=== PATIENT | female | born 1965 | race African-American/Black ===

== ENCOUNTER 2023-11-15 13:04 | Inpatient (IN) | payer BC, OTHER ==
[~2023-11-15] VITALS: Ht 165.1 cm; Wt 68.7 kg
[2023-11-15 14:31] VITALS: PULSE 74; RESP 22; O2SAT 98
[2023-11-15 14:45] LABS: Basophils # (auto) 0 10 ^3/uL (0-0.2); Basophils % (auto) 0.8 % (0.0-2.0); Eosinophils # (auto) 0.1 10 ^3/uL (0-0.8); Hemoglobin 13.5 g/dL (12.2-16.2); Lymphocytes # (auto) 2.2 10 ^3/uL (0.4-5.4); Lymphocytes % (auto) 40.4 % (10.0-50.0); Mean Corpuscular Hemoglobin 31.4 pg (28.0-32.0); Mean Corpuscular Hgb Conc. 34.5 g/dL (32.0-36.0); Mean Corpuscular Volume 90.8 fL (80.0-100.0); Monocytes # (auto) 0.5 10 ^3/uL (0-1.3); Monocytes % (auto) 9.4 % (0.0-12.0); Neutrophils # (auto) 2.5 10 ^3/uL (1.6-8.6); Neutrophils % (auto) 47.4 % (37.0-80.0); Nucleated Red Blood Cells % 0.2 %; Platelet Count (auto) 256 10^3/uL (140-450); White Blood Cell 5.3 10^3/uL (4.4-10.8)
[2023-11-15 14:47] LABS: Chloride 113 mmol/L (98-107); Potassium 3.3 mmol/L (3.5-5.1); Sodium 144 mmol/L (136-145)
[2023-11-15 14:48] LABS: Anion Gap 7 (5-15); Calcium 9.9 mg/dL (8.7-10.4); Carbon Dioxide 24 mmol/L (20-31)
[2023-11-15 14:53] LABS: BUN/Creatinine Ratio 13.2 (10.0-20.0); Blood Urea Nitrogen 9 mg/dL (9-23); Glucose 107 mg/dL (74-106)
[2023-11-15 19:22] LABS: Urine Bacteria FEW /hpf (None Seen); Urine Blood Negative /uL (Negative); Urine Clarity Clear (Clear); Urine Color Light-Yellow (Yellow); Urine Protein, UAD Negative (Negative); Urine Specific Gravity 1.012 (1.001-1.035); Urine Urobilinogen Normal (Negative); Urine WBC 3 /hpf (0 - 5); Urine pH 6.5 (5.0-9.0)
[2023-11-15] MEDS ORDERED: MORPHINE SULFATE INJ 2 MG/ml SYRG IV PRN (20:30)
[2023-11-15] MEDS ORDERED: DOCUSATE SOD 100 MG CAP PO PRN (20:30)
[2023-11-15] MEDS ORDERED: NITROGLYCERIN 0.4 MG SL TAB SL PRN (20:30)
[2023-11-15] MEDS ORDERED: ONDANSETRON HCL 4 MG/2 ML VIAL IV PRN (20:30)
[2023-11-15] MEDS: HYDROcodone-ACET 5/325MG TAB PO ONE (20:36)
[2023-11-15] MEDS: POTASSIUM CHL 20 Meq TABLET PO ONE (20:44)
[2023-11-15 20:59] VITALS: PULSE 65; RESP 13; O2SAT 96
[2023-11-15 22:16] VITALS: BP 141/60; PULSE 60; RESP 18; TEMP 97.5; O2SAT 95
[2023-11-15] MEDS: MECLIZINE HCL 25 MG TAB PO SCH (23:49)
[2023-11-16] VITALS (10 sets, daily range): BP systolic 119–145; BP diastolic 46–71; PULSE 57–76; RESP 16–20; TEMP 97.4–98; O2SAT 94–100
[2023-11-16] MEDS: HYDROcodone-ACET 5/325MG TAB PO PRN (03:45)
[2023-11-16 07:41] LABS: Carbon Dioxide 21 mmol/L (20-31); Chloride 111 mmol/L (98-107)
[2023-11-16 07:42] LABS: Anion Gap 8 (5-15); Sodium 140 mmol/L (136-145)
[2023-11-16 07:43] LABS: Calcium 9.9 mg/dL (8.7-10.4)
[2023-11-16 07:48] LABS: BUN/Creatinine Ratio 10.8 (10.0-20.0); Blood Urea Nitrogen 7 mg/dL (9-23); Glucose 81 mg/dL (74-106)
[2023-11-16 07:55] LABS: Basophils # (auto) 0 10 ^3/uL (0-0.2); Basophils % (auto) 0.5 % (0.0-2.0); Eosinophils # (auto) 0.2 10 ^3/uL (0-0.8); Eosinophils % (auto) 4.2 % (0.0-7.0); Hemoglobin 13.8 g/dL (12.2-16.2); Lymphocytes # (auto) 2.2 10 ^3/uL (0.4-5.4); Lymphocytes % (auto) 38.7 % (10.0-50.0); Mean Corpuscular Hemoglobin 31.2 pg (28.0-32.0); Mean Corpuscular Hgb Conc. 32.9 g/dL (32.0-36.0); Mean Corpuscular Volume 94.7 fL (80.0-100.0); Monocytes # (auto) 0.5 10 ^3/uL (0-1.3); Monocytes % (auto) 9.2 % (0.0-12.0); Neutrophils # (auto) 2.7 10 ^3/uL (1.6-8.6); Neutrophils % (auto) 47.4 % (37.0-80.0); Nucleated Red Blood Cells % 0.1 %; Red Blood Cells 4.43 10^6/uL (4.0-5.20); Red Cell Distribution Width 14.4 % (11.8-14.3); White Blood Cell 5.7 10^3/uL (4.4-10.8)
[2023-11-16 07:56] LABS: Platelet Count (auto) 248 10^3/uL (140-450)
[2023-11-16] MEDS ORDERED: DIVA-91 PO (17:17)
[2023-11-16] MEDS ORDERED: BISO1TAB18 PO (17:22)
[2023-11-16] MEDS ORDERED: MEMA14CA OR (17:23)
[2023-11-17] VITALS (7 sets, daily range): BP systolic 117–150; BP diastolic 56–77; PULSE 58–79; RESP 16–18; TEMP 36.7; O2SAT 97–100
[2023-11-17 07:15] LABS: Chloride 108 mmol/L (98-107); Potassium 3.9 mmol/L (3.5-5.1); Sodium 141 mmol/L (136-145)
[2023-11-17 07:16] LABS: Anion Gap 7 (5-15); Calcium 10.3 mg/dL (8.7-10.4); Carbon Dioxide 26 mmol/L (20-31)
[2023-11-17 07:21] LABS: BUN/Creatinine Ratio 13.6 (10.0-20.0); Blood Urea Nitrogen 9 mg/dL (9-23); Glucose 86 mg/dL (74-106)
[2023-11-17 07:30] LABS: Basophils # (auto) 0 10 ^3/uL (0-0.2); Basophils % (auto) 0.8 % (0.0-2.0); Eosinophils # (auto) 0.2 10 ^3/uL (0-0.8); Hematocrit 44.4 % (36.0-46.0); Hemoglobin 15.2 g/dL (12.2-16.2); Lymphocytes # (auto) 1.7 10 ^3/uL (0.4-5.4); Mean Corpuscular Hemoglobin 31.1 pg (28.0-32.0); Mean Corpuscular Hgb Conc. 34.3 g/dL (32.0-36.0); Mean Corpuscular Volume 90.6 fL (80.0-100.0); Monocytes # (auto) 0.5 10 ^3/uL (0-1.3); Monocytes % (auto) 9.9 % (0.0-12.0); Neutrophils # (auto) 2.6 10 ^3/uL (1.6-8.6); Neutrophils % (auto) 51.3 % (37.0-80.0); Nucleated Red Blood Cells % 0.1 %; Platelet Count (auto) 235 10^3/uL (140-450); Red Cell Distribution Width 14.1 % (11.8-14.3); White Blood Cell 5.1 10^3/uL (4.4-10.8)
[2023-11-17] MEDS ORDERED: MECL12.586 PO (12:49)
[2023-11-17] MEDS: ACETAMINOPHEN 325 MG TAB PO PRN (13:55)
== END 2023-11-17 17:21 | disposition home health service (06) | DRG 312 ==
LOC: ER 13:04 → EDBD 13:04 → TELE 20:32 → TELE-WESTW 22:16
PROVIDERS: ADMIT Nurse Practitioner Family; ATTEND Nurse Practitioner Family
DX: R55 Syncope and collapse (principal); I69.351 Hemiplegia and hemiparesis following cerebral infarction affecting right dominant side; R42 Dizziness and giddiness; R07.9 Chest pain, unspecified; R53.1 Weakness; F17.210 Nicotine dependence, cigarettes, uncomplicated
CPT/HCPCS: 36415; 70450; 71045; 73020; 80048; 81001; 84484; 85025; 93005; 93306; 97110; 97116; 97163; 97530; 99291; G0378

== ENCOUNTER 2024-01-07 17:52 | Emergency (ER) | payer BC ==
[~2024-01-07] VITALS: Ht 167.6 cm; Wt 67.0 kg
[~2024-01-07 17:52] MED LIST: BISO1TAB18 PO; DIVA-91 PO; MECL12.586 PO; MEMA14CA OR
--- NOTE | 2024-01-07 18:05 | ED.PDOC ---
HPI (NEURO) HPI Comments 58y F who presents to the ED via EMS for chief complaint of seizure. Per EMS, pt had seizure earlier this AM witnessed by family which they states lasted approx 1 minute. Pt family states pt was sitting down when seizure occurred and pt after seizure has been having dizziness and family called EMS after pt dizziness did not go away. pt family states pt had no oral trauma or incontinence noted after seizure. EMS arrived on scene and after checking vitals, pt was stable and brought to the ED. Pt in the ED, states she was recently diagnosed with seizure activity at [facility] and started on Keppra and Depakote which pt has been taking and took earlier this AM. Pt now in the ED, otherwise is ax0x 0x4 and able to answer all questions. Pt otherwise denies any other symptoms at this time. Chief Complaint: Seizure Time Seen by MD: 18:02 Reviewed Notes: Medications, Allergies Information Source: Patient, Emergency Med Personnel Mode of Arrival: EMS Brought in by: EMS Severity: Moderate Dizziness/Weakness Severity: Unable to do activities Headache Severity: None Timing: Minutes, Hours Duration: Since onset Prehospital treatment: None Headache Quality: Throbbing Headache Location: Generalized Onset: At rest Circumstances: Spontaneous Symptoms: Weakness Before: Normal During: LOC After: Headache History of: Seizure Disorder Modifying factors: Nothing Associated Signs and Symptoms: None Past Medical History PAST MEDICAL HISTORY: CVA, Seizures Past Medical History (Other): brain aneurysm Surgical History: Denies all surgeries Surgical History (Other): surgery for brain aneurysm WHITE SPOOLER History: No Pertinent WHITE SPOOLER History Family History Family History: Unknown Social History Smoker: Non-Smoker Alcohol: Denies ETOH Use Drugs: Denies Drug Use Lives In: Home Constitutional: denies: chills, diaphoresis, fatigue, fever, malaise, sweats, weakness, others EENTM: denies: blurred vision, double vision, ear bleeding, ear discharge, ear drainage, ear pain, ear ringing, eye pain, eye redness, hearing loss, mouth pain, mouth swelling, nasal discharge, nose bleeding, nose congestion, nose pain, photophobia, tearing, throat pain, throat swelling, voice changes, others Respiratory: denies: cough, hemoptysis, orthopnea, SOB at rest, shortness of breath, SOB with excertion, stridor, wheezing, others Cardiovascular: denies: chest pain, dizzy spells, diaphoresis, Dyspnea on exertion, edema, irregular heart beat, left arm pain, lightheadedness, palpitations, PND, syncope, others Gastrointestinal: denies: abdomen distended, abdominal pain, blood streaked bowels, constipated, diarrhea, dysphagia, difficulty swallowing, hematemesis, melena, nausea, poor appetite, poor fluid intake, rectal bleeding, rectal pain, vomiting, others Genitourinary: denies: abnormal vagina bleeding, burning, dyspareunia, dysuria, flank pain, frequency, hematuria, incontinence, pain, , vagina discharge, urgency, others Neurological: reports: headache, seizure; denies: dizziness, fainting, left sided numbness, left sided weakness, numbness, paresthesia, pre-existing deficit, right sided numbness, right sided weakness, speech problems, tingling, tremors, weakness, others Musculoskeletal: denies: back pain, gout, joint pain, joint swelling, muscle pain, muscle stiffness, neck pain, others Integumetry: denies: bruises, change in color, change in hair/nails, dryness, laceration, lesions, lumps, rash, wounds, others Allergic/Immunocompromised: denies: Difficulty Healing, Frequent Infections, Hives, Itching, others Hematologic/Lymphatic: denies: anemia, blood clots, easy bleeding, easy bruising, swollen glands, others Endocrine: denies: excessive hunger, excessive sweating, excessive thirst, excessive urination, flushing, intolerance to cold, intolerance to heat, unexplained weight gain, unexplained weight loss, others Psychiatric: denies: anxiety, bipolar disorder, depression, hopeless, panic disorder, schizophrenia, sleepless, suicidal, others All Other Systems: Reviewed and Negative Physical Exam General Appearance: Mild Distress HEENT: Normal ENT Inspection, Pharynx Normal, TMs Normal Neck: Full Range of Motion, Non-Tender, Normal, Normal Inspection Respiratory: Chest Non-Tender, Lungs Clear, No Accessory Muscle Use, No Respiratory Distress, Normal Breath Sounds Cardiovascular: No Edema, No JVD, No Murmur, No Gallop, Normal Peripheral Pulses, Regular Rate/Rhythm Breast Exam: Deferred Gastrointestinal: No Organomegaly, Non Tender, No Pulsatile Mass, Normal Bowel Sounds, Soft Genitalia: Deferred Pelvic: Deferred Rectal: Deferred Extremities: No calf tenderness, Normal capillary refill, Normal inspection, Normal range of motion, Non-tender, No pedal edema Musculoskeletal : Apperance: Normal Neurologic: Alert, rotary helper II-XII nml as Tested, No Motor Deficits, Normal Affect, Normal Mood, No Sensory Deficits Cerebellar Function: Normal Reflexes: Normal Skin: Dry, Normal Color, Warm Lymphatic: No Adenopathy Was a procedure done? Was a procedure done?: No Differential Diagnosis (SZ) Seizure: Anticonvulsant Withdrawl, Closed Head Injury, CVA/TIA, Hypocalcemia, Hypoglycemia, Hyponatremia, Hypoxemia, Idiopathic, Encephalopathy, Epilepsy- Break Through, Epilepsy-Status, Other (break-through seizure) Headache: Migraine, Closed Head Injury, Sinusitis, Trigeminal Neuralgia X-Ray, Labs, Meds, VS Vital Signs Date Time Temp Pulse Resp B/P (MAP) Pulse Ox O2 Delivery O2 Flow Rate FiO2 01/07/24 18:45 67 01/07/24 18:45 61 17 129/38 (68) 96 01/07/24 18:45 61 17 96 Room Air* 0 21 01/07/24 17:55 98.4 78 16 137/88 (104) 98 01/07/24 17:53 78 Lab Test 01/07/24 18:36 Range/Units White Blood Count 5.3 4.4-10.8 10^3/uL Red Blood Count 4.85 4.0-5.20 10^6/uL Hemoglobin 15.2 12.2-16.2 g/dL Hematocrit 44.5 36.0-46.0 % Mean Corpuscular Volume 91.8 80.0-100.0 fL Mean Corpuscular Hemoglobin 31.4 28.0-32.0 pg Mean Corpuscular Hemoglobin Concent 34.2 32.0-36.0 g/dL Red Cell Distribution Width 13.2 11.8-14.3 % Platelet Count 285 140-450 10^3/uL Mean Platelet Volume 8.3 6.9-10.8 fL Neutrophils (%) (Auto) 45.5 37.0-80.0 % Lymphocytes (%) (Auto) 39.5 10.0-50.0 % Monocytes (%) (Auto) 11.8 0.0-12.0 % Eosinophils (%) (Auto) 2.3 0.0-7.0 % Basophils (%) (Auto) 0.9 0.0-2.0 % Neutrophils # (Auto) 2.4 1.6-8.6 10 ^3/uL Lymphocytes # (Auto) 2.1 0.4-5.4 10 ^3/uL Monocytes # (Auto) 0.6 0-1.3 10 ^3/uL Eosinophils # (Auto) 0.1 0-0.8 10 ^3/uL Basophils # (Auto) 0 0-0.2 10 ^3/uL Nucleated Red Blood Cells 0.1 % Sodium Level 142 136-145 mmol/L Potassium Level 3.5 3.5-5.1 mmol/L Chloride Level 108 H 98-107 mmol/L Carbon Dioxide Level 24 20-31 mmol/L Anion Gap 10 5-15 Blood Urea Nitrogen 13 9-23 mg/dL Creatinine 0.82 0.550-1.02 mg/dL Glomerular Filtration Rate Calc 82 >90 mL/min BUN/Creatinine Ratio 15.9 10.0-20.0 Serum Glucose 89 74-106 mg/dL Calcium Level 10.5 H 8.7-10.4 mg/dL Valproic Acid Level Pending Current Medications Medications (Trade) Dose Ordered Sig/Natividad Route Start Time Stop Time Status Last Admin Levetiracetam 100 ml @ 400 mls/hr ONCE ONCE IV 01/07/24 18:00 01/07/24 18:14 DC 01/07/24 19:13 IV Hep-Lock was established The patient was given Keppra 1 g IV piggyback The patient was also being given Depakote 500 mg IV piggyback The patient's CBC and chemistry panel are within normal limits The patient was being discharged The patient will follow up with the primary care doctor The patient will return to the emergency department's the condition worsens. Time of 1ST Reevaluation: 18:35 Reevaluation 1ST: Unchanged Time of 2ND Reevaluation: 19:27 Reevaluation 2ND: Improved Patient Education/Counseling: Diagnosis, Treatment, Prognosis, Need For Follow Up Family Education/Counseling: No Family Present Departure 1 Departure Time of Disposition: 19:27 Impression: Primary Impression: Breakthrough seizure Disposition: 01 HOME / SELF CARE / HOMELESS Condition: Fair Discharged With: Self Critical Care Note Critical Care Time?: No Stability Stability form required: No Heart Score Heart Score: Heart Score Response (Comments) Value History N/A 0 EKG N/A 0 Age N/A 0 Risk Factors N/A 0 Troponin N/A 0 Total 0 I personally scribed for STEFANY THAPA MD ([email or web address]) on 01/07/24 at 18:05. Electronically submitted by Terrance Heath ([email or web address]). STEFANY THAPA MD Jan 07, 2024 18:05
--- NOTE | 2024-01-07 18:08 | ECG ---
[facility] Test Date: 2024-01-07 Test Time: 17:53:57 Pat Name: SHELLEY RANDOLPH Department: ER Room: Gender: F Cold Type Artist: LILIAM : 1965 Requested By: STEFANY THAPA Order Number: [id number] Reading MD: Eric Ureña Measurements Intervals [place] Rate: 78 P: 79 [place]: 135 QRS: 46 QRSD: 78 T: 64 QT: 390 QTc: 445 Interpretive Statements Sinus rhythm Electronically Signed On 01-13-2024 13:35:41 PST by Eric Ureña Please click the below link to view image of tracing.
[2024-01-07 18:45] VITALS: PULSE 61; RESP 17; O2SAT 96
[2024-01-07 18:53] LABS: Basophils # (auto) 0 10 ^3/uL (0-0.2); Basophils % (auto) 0.9 % (0.0-2.0); Eosinophils # (auto) 0.1 10 ^3/uL (0-0.8); Eosinophils % (auto) 2.3 % (0.0-7.0); Hematocrit 44.5 % (36.0-46.0); Hemoglobin 15.2 g/dL (12.2-16.2); Lymphocytes # (auto) 2.1 10 ^3/uL (0.4-5.4); Lymphocytes % (auto) 39.5 % (10.0-50.0); Mean Corpuscular Hemoglobin 31.4 pg (28.0-32.0); Mean Corpuscular Hgb Conc. 34.2 g/dL (32.0-36.0); Mean Corpuscular Volume 91.8 fL (80.0-100.0); Monocytes # (auto) 0.6 10 ^3/uL (0-1.3); Monocytes % (auto) 11.8 % (0.0-12.0); Neutrophils # (auto) 2.4 10 ^3/uL (1.6-8.6); Neutrophils % (auto) 45.5 % (37.0-80.0); Nucleated Red Blood Cells % 0.1 %; Platelet Count (auto) 285 10^3/uL (140-450); Red Blood Cells 4.85 10^6/uL (4.0-5.20); Red Cell Distribution Width 13.2 % (11.8-14.3); White Blood Cell 5.3 10^3/uL (4.4-10.8)
[2024-01-07 19:12] LABS: Sodium 142 mmol/L (136-145)
[2024-01-07 19:13] LABS: Anion Gap 10 (5-15); Carbon Dioxide 24 mmol/L (20-31)
[2024-01-07] MEDS: levETIRAcetam 1000 mg/100ml 100 ML IV ONE (19:13)
[2024-01-07 19:14] LABS: Calcium 10.5 mg/dL (8.7-10.4); Chloride 108 mmol/L (98-107); Potassium 3.5 mmol/L (3.5-5.1)
[2024-01-07 19:18] LABS: BUN/Creatinine Ratio 15.9 (10.0-20.0); Blood Urea Nitrogen 13 mg/dL (9-23); Glucose 89 mg/dL (74-106)
[2024-01-07 20:00] VITALS: PULSE 59; RESP 15; TEMP 98; O2SAT 97
[2024-01-07] MEDS: VALPROATE INJ 500 MG in SODIUM CHL 0.9% 100 ML IV ONE (20:34)
[2024-01-07] MEDS: VALPROATE SODIUM 100 MG/ML 5ML VIAL IV ONE (20:44)
[2024-01-07 23:00] VITALS: BP 113/41; PULSE 61; RESP 14; O2SAT 98
== END 2024-01-07 23:47 | disposition home or self-care (01) ==
LOC: EDBD 17:52 → ER 17:52 → EDUNIT# 17:52 → ER 23:47
DX: G40.909 Epilepsy, unspecified, not intractable, without status epilepticus (principal); Z86.73 Personal history of transient ischemic attack (TIA), and cerebral infarction without residual deficits; Z98.890 Other specified postprocedural states
CPT/HCPCS: 36415; 80048; 80164; 85025; 93005; 96365; 96366; 96367; 99285; J1953

== ENCOUNTER 2024-04-25 14:46 | Emergency (ER) | payer BC ==
[~2024-04-25] VITALS: Ht 167.6 cm; Wt 85.0 kg
--- NOTE | 2024-04-25 15:01 | ED.PDOC ---
History of Present Illness HPI Comments 58-year-old female who comes in with chief complaint of three seizures today lasting 1-2 minutes each. According to the bench hand machine, the patient was at home and then had three tonic-clonic seizures. The patient was currently on Keppra and took her 1500 mg this morning. The patient then developed some nausea but no vomiting. The patient's Accu-Chek was 95 EN route. When the paramedics arrived, the patient was somewhat postictal but upon arrival she is able to answer all questions appropriately. She has had seizures after her brain surgery and has been doing fairly well. Time Seen by MD: 14:50 Reviewed Notes: Nurses Notes, Medications, Allergies (Allergies to sulfa) Allergies: Coded Allergies: Sulfa Antibiotics (Verified Allergy, Unknown, 11/15/23) Home Meds Active Scripts Meclizine Hcl (Meclizine Hcl) 12.5 Mg Tab, 1 TAB PO TID PRN, #14 TAB As needed for dizziness/vertigo symptoms Prov:HALLE BANEGAS MD 11/17/23 Reported Medications Memantine Hydrochloride (NAMENDA XR) 14 Mg Cap, 14 MG OR DAILY, CAP 11/16/23 Bisoprolol & Hydrochlorothiazi (Bisoprolol Fumarate/Norton 10-6.25 mg) 1 Tab Tab, 1 TAB PO HS, TAB 11/16/23 Divalproex Sodium (Depakote) 500 Mg Tab, 500 MG PO HS, TAB 11/16/23 Information Source: Patient Mode of Arrival: EMS Severity: Moderate Duration: Intermittent Prehospital treatment: Accucheck (95), Utility Worker Driver, IVF Associated signs and symptoms Associated headache but no nausea or vomiting Past Medical History PAST MEDICAL HISTORY: CVA, Seizures Surgical History: Hysterectomy Surgical History (Other): Craniotomy NETWORK TECHNICIAN History: No Pertinent NETWORK TECHNICIAN History Family History Family History: Unknown Social History Smoker: Cigarettes Alcohol: Denies ETOH Use Drugs: Denies Drug Use Lives In: Home Constitutional: denies: chills, diaphoresis, fatigue, fever, malaise, sweats, weakness, others EENTM: denies: blurred vision, double vision, ear bleeding, ear discharge, ear drainage, ear pain, ear ringing, eye pain, eye redness, hearing loss, mouth pain, mouth swelling, nasal discharge, nose bleeding, nose congestion, nose pain, photophobia, tearing, throat pain, throat swelling, voice changes, others Respiratory: denies: cough, hemoptysis, orthopnea, SOB at rest, shortness of breath, SOB with excertion, stridor, wheezing, others Cardiovascular: denies: chest pain, dizzy spells, diaphoresis, Dyspnea on exertion, edema, irregular heart beat, left arm pain, lightheadedness, palpitations, PND, syncope, others Gastrointestinal: reports: nausea; denies: abdomen distended, abdominal pain, blood streaked bowels, constipated, diarrhea, dysphagia, difficulty swallowing, hematemesis, melena, poor appetite, poor fluid intake, rectal bleeding, rectal pain, vomiting, others Genitourinary: denies: abnormal vagina bleeding, burning, dyspareunia, dysuria, flank pain, frequency, hematuria, incontinence, pain, , vagina discharge, urgency, others Neurological: reports: headache, seizure; denies: dizziness, fainting, left sided numbness, left sided weakness, numbness, paresthesia, pre-existing deficit, right sided numbness, right sided weakness, speech problems, tingling, tremors, weakness, others Musculoskeletal: denies: back pain, gout, joint pain, joint swelling, muscle pain, muscle stiffness, neck pain, others Integumetry: denies: bruises, change in color, change in hair/nails, dryness, laceration, lesions, lumps, rash, wounds, others Allergic/Immunocompromised: denies: Difficulty Healing, Frequent Infections, Hives, Itching, others Hematologic/Lymphatic: denies: anemia, blood clots, easy bleeding, easy bruising, swollen glands, others Endocrine: denies: excessive hunger, excessive sweating, excessive thirst, excessive urination, flushing, intolerance to cold, intolerance to heat, unexplained weight gain, unexplained weight loss, others Psychiatric: denies: anxiety, bipolar disorder, depression, hopeless, panic disorder, schizophrenia, sleepless, suicidal, others Physical Exam General Appearance: Mild Distress HEENT: Normal ENT Inspection, Pharynx Normal, TMs Normal Neck: Full Range of Motion, Non-Tender, Normal, Normal Inspection Respiratory: Chest Non-Tender, Lungs Clear, No Accessory Muscle Use, No Respiratory Distress, Normal Breath Sounds Cardiovascular: No Edema, No JVD, No Murmur, No Gallop, Normal Peripheral Pulses, Regular Rate/Rhythm Breast Exam: Deferred Gastrointestinal: No Organomegaly, Non Tender, No Pulsatile Mass, Normal Bowel Sounds, Soft Genitalia: Deferred Pelvic: Deferred Rectal: Deferred Extremities: No calf tenderness, Normal capillary refill, Normal inspection, Normal range of motion, Non-tender, No pedal edema Musculoskeletal : Apperance: Normal Neurologic: Alert, touch up painter II-XII nml as Tested, No Motor Deficits, Normal Affect, Normal Mood, No Sensory Deficits Cerebellar Function: Normal Reflexes: Normal Skin: Dry, Normal Color, Warm Lymphatic: No Adenopathy Was a procedure done? Was a procedure done?: No Differential Dx Considerations may include: Seizure, status epilepticus, syncope X-Ray, Labs, Meds, VS Vital Signs Date Time Temp Pulse Resp B/P (MAP) Pulse Ox O2 Delivery O2 Flow Rate FiO2 04/25/24 15:35 102 18 97 Room Air* 0 21 04/25/24 15:21 98.4 102 18 116/78 (91) 97 98.4 04/25/24 15:01 98.4 102 18 116/78 (91) 97 98.4 Lab Test 04/25/24 15:31 Range/Units White Blood Count 4.8 4.4-10.8 10^3/uL Red Blood Count 4.40 4.0-5.20 10^6/uL Hemoglobin 13.4 12.2-16.2 g/dL Hematocrit 39.9 36.0-46.0 % Mean Corpuscular Volume 90.6 80.0-100.0 fL Mean Corpuscular Hemoglobin 30.4 28.0-32.0 pg Mean Corpuscular Hemoglobin Concent 33.6 32.0-36.0 g/dL Red Cell Distribution Width 12.9 11.8-14.3 % Platelet Count 282 140-450 10^3/uL Mean Platelet Volume 8.5 6.9-10.8 fL Neutrophils (%) (Auto) 47.1 37.0-80.0 % Lymphocytes (%) (Auto) 38.1 10.0-50.0 % Monocytes (%) (Auto) 10.7 0.0-12.0 % Eosinophils (%) (Auto) 3.0 0.0-7.0 % Basophils (%) (Auto) 1.1 0.0-2.0 % Neutrophils # (Auto) 2.3 1.6-8.6 10 ^3/uL Lymphocytes # (Auto) 1.8 0.4-5.4 10 ^3/uL Monocytes # (Auto) 0.5 0-1.3 10 ^3/uL Eosinophils # (Auto) 0.1 0-0.8 10 ^3/uL Basophils # (Auto) 0.1 0-0.2 10 ^3/uL Nucleated Red Blood Cells 0.1 % Sodium Level 144 136-145 mmol/L Potassium Level 3.3 L 3.5-5.1 mmol/L Chloride Level 112 H 98-107 mmol/L Carbon Dioxide Level 25 20-31 mmol/L Anion Gap 7 5-15 Blood Urea Nitrogen 8 L 9-23 mg/dL Creatinine 0.86 0.550-1.02 mg/dL Glomerular Filtration Rate Calc 78 >90 mL/min BUN/Creatinine Ratio 9.3 L 10.0-20.0 Serum Glucose 72 L 74-106 mg/dL Calcium Level 10.4 8.7-10.4 mg/dL Current Medications Medications (Trade) Dose Ordered Sig/Natividad Route Start Time Stop Time Status Last Admin Levetiracetam 100 ml @ 400 mls/hr ONCE ONCE IV 04/25/24 15:00 04/25/24 15:14 DC 04/25/24 15:30 The patient's CBC and chemistry panel shows some mild hypokalemia at 3.3 The patient was given Keppra 1 g IV piggyback At this time, the patient is at baseline The patient will be discharged with a diagnosis of breakthrough seizures Time of 1ST Reevaluation: 15:01 Reevaluation 1ST: Unchanged Patient Education/Counseling: Diagnosis, Treatment, Prognosis, Need For Follow Up Family Education/Counseling: No Family Present Departure 1 Departure Time of Disposition: 16:31 Impression: Primary Impression: Breakthrough seizure Disposition: 01 HOME / SELF CARE / HOMELESS Condition: Fair Discharged With: Self Critical Care Note Critical Care Time?: No Stability Stability form required: No Heart Score Heart Score: Heart Score Response (Comments) Value History N/A 0 EKG N/A 0 Age N/A 0 Risk Factors N/A 0 Troponin N/A 0 Total 0 STEFANY THAPA MD Apr 25, 2024 15:01
[2024-04-25 15:21] VITALS: TEMP 98.4
[2024-04-25] MEDS: levETIRAcetam 1000 mg/100ml 100 ML IV ONE (15:30)
[2024-04-25 15:35] VITALS: PULSE 102; RESP 18; O2SAT 97
[2024-04-25 15:59] LABS: Basophils # (auto) 0.1 10 ^3/uL (0-0.2); Basophils % (auto) 1.1 % (0.0-2.0); Eosinophils # (auto) 0.1 10 ^3/uL (0-0.8); Hematocrit 39.9 % (36.0-46.0); Hemoglobin 13.4 g/dL (12.2-16.2); Lymphocytes # (auto) 1.8 10 ^3/uL (0.4-5.4); Lymphocytes % (auto) 38.1 % (10.0-50.0); Mean Corpuscular Hemoglobin 30.4 pg (28.0-32.0); Mean Corpuscular Hgb Conc. 33.6 g/dL (32.0-36.0); Mean Corpuscular Volume 90.6 fL (80.0-100.0); Monocytes # (auto) 0.5 10 ^3/uL (0-1.3); Monocytes % (auto) 10.7 % (0.0-12.0); Neutrophils # (auto) 2.3 10 ^3/uL (1.6-8.6); Neutrophils % (auto) 47.1 % (37.0-80.0); Nucleated Red Blood Cells % 0.1 %; Platelet Count (auto) 282 10^3/uL (140-450); Red Cell Distribution Width 12.9 % (11.8-14.3); White Blood Cell 4.8 10^3/uL (4.4-10.8)
[2024-04-25 16:08] LABS: Sodium 144 mmol/L (136-145)
[2024-04-25 16:09] LABS: Anion Gap 7 (5-15); Carbon Dioxide 25 mmol/L (20-31); Chloride 112 mmol/L (98-107); Potassium 3.3 mmol/L (3.5-5.1)
[2024-04-25 16:10] LABS: Calcium 10.4 mg/dL (8.7-10.4)
[2024-04-25 16:14] LABS: BUN/Creatinine Ratio 9.3 (10.0-20.0)
[2024-04-25 16:15] LABS: Blood Urea Nitrogen 8 mg/dL (9-23); Glucose 72 mg/dL (74-106)
[2024-04-25 17:31] VITALS: BP 123/58; PULSE 60; RESP 16; O2SAT 98
[2024-04-25] MEDS: ONDANSETRON HCL 4 MG/2 ML VIAL IV ONE (17:31)
[2024-04-25] MEDS: MORPHINE SULFATE INJ 2 MG/ml SYRG IV ONE (17:32)
== END 2024-04-25 23:00 | disposition home or self-care (01) ==
LOC: ER 14:46 → EDUNIT# 14:46 → EDBD 14:46 → ER 23:00
DX: R56.9 Unspecified convulsions (principal); F17.210 Nicotine dependence, cigarettes, uncomplicated; Z79.899 Other long term (current) drug therapy; Z86.73 Personal history of transient ischemic attack (TIA), and cerebral infarction without residual deficits; Z88.2 Allergy status to sulfonamides; Z90.710 Acquired absence of both cervix and uterus; Z98.890 Other specified postprocedural states
CPT/HCPCS: 36415; 80048; 85025; 96365; 99284; J1953

== ENCOUNTER 2024-08-16 11:10 | Emergency (ER) | payer BC, OTHER ==
[~2024-08-16] VITALS: Ht 167.6 cm; Wt 56.8 kg
--- NOTE | 2024-08-16 11:24 | ECG ---
[facility] Test Date: 2024-08-16 Test Time: 11:12:49 Pat Name: SHELLEY RANDOLPH Department: ED Room: Gender: F Insurance Manager: DEVAUGHN : 1965 Requested By: STEFANY THAPA Order Number: [id number] Reading MD: Eric Ureña Measurements Intervals [place] Rate: 69 P: 79 [place]: 136 QRS: 38 QRSD: 83 T: 57 QT: 429 QTc: 460 Interpretive Statements Sinus rhythm Electronically Signed On 08-18-2024 19:02:04 PDT by Eric Ureña Please click the below link to view image of tracing.
[2024-08-16] MEDS ORDERED: levETIRAcetam 1000 mg/100ml 200 ML IV ONE (11:30)
[2024-08-16] MEDS: levETIRAcetam 1000 mg/100ml 100 ML IV ONE ×2 (11:54)
--- NOTE | 2024-08-16 12:01 | ED.PDOC ---
HPI (NEURO) HPI Comments 59 y/o F, BIBA, accompanied by critical care educator presents to the ED for CC of s/p seizure. EMS reports, patient is coming from home where she had x2 witnessed seizures by her resident care manager rn. supervising editor trailer, reports patient had her scheduled Keppra as prescribed. At this time patient is A&Ox0 however, is following commands; no other symptoms or modifiers are obtainable at this time. Chief Complaint: Seizure Time Seen by MD: 11:30 Primary Care Provider: UNKNOWN Reviewed Notes: Nurses Notes, Assistant Store Manager Trainee Notes, Medications, Allergies Information Source: Emergency Med Personnel Mode of Arrival: EMS Severity: Moderate Headache Severity: None Timing: Minutes Duration: Since onset Prehospital treatment: None Seizure Location: Generalized Onset: At rest Circumstances: Spontaneous Before: Normal During: Awake After: Normal Mentation History of: Seizure Disorder Modifying factors: Nothing Associated Signs and Symptoms: None Past Medical History PAST MEDICAL HISTORY: CVA, Seizures Surgical History: Hysterectomy KILN FIRER HELPER History: No Pertinent KILN FIRER HELPER History Family History Family History: Unknown Social History Smoker: Cigarettes Alcohol: Denies ETOH Use Drugs: Denies Drug Use Lives In: Home Constitutional: denies: chills, diaphoresis, fatigue, fever, malaise, sweats, weakness, others EENTM: denies: blurred vision, double vision, ear bleeding, ear discharge, ear drainage, ear pain, ear ringing, eye pain, eye redness, hearing loss, mouth pain, mouth swelling, nasal discharge, nose bleeding, nose congestion, nose pain, photophobia, tearing, throat pain, throat swelling, voice changes, others Respiratory: denies: cough, hemoptysis, orthopnea, SOB at rest, shortness of breath, SOB with excertion, stridor, wheezing, others Cardiovascular: denies: chest pain, dizzy spells, diaphoresis, Dyspnea on exertion, edema, irregular heart beat, left arm pain, lightheadedness, palpitations, PND, syncope, others Gastrointestinal: denies: abdomen distended, abdominal pain, blood streaked bowels, constipated, diarrhea, dysphagia, difficulty swallowing, hematemesis, melena, nausea, poor appetite, poor fluid intake, rectal bleeding, rectal pain, vomiting, others Genitourinary: denies: abnormal vagina bleeding, burning, dyspareunia, dysuria, flank pain, frequency, hematuria, incontinence, pain, , vagina discharge, urgency, others Neurological: reports: seizure; denies: dizziness, fainting, headache, left sided numbness, left sided weakness, numbness, paresthesia, pre-existing deficit, right sided numbness, right sided weakness, speech problems, tingling, tremors, weakness, others Musculoskeletal: denies: back pain, gout, joint pain, joint swelling, muscle pain, muscle stiffness, neck pain, others Integumetry: denies: bruises, change in color, change in hair/nails, dryness, laceration, lesions, lumps, rash, wounds, others Allergic/Immunocompromised: denies: Difficulty Healing, Frequent Infections, Hives, Itching, others Hematologic/Lymphatic: denies: anemia, blood clots, easy bleeding, easy bruising, swollen glands, others Endocrine: denies: excessive hunger, excessive sweating, excessive thirst, excessive urination, flushing, intolerance to cold, intolerance to heat, unexplained weight gain, unexplained weight loss, others Psychiatric: denies: anxiety, bipolar disorder, depression, hopeless, panic disorder, schizophrenia, sleepless, suicidal, others All Other Systems: Reviewed and Negative Physical Exam General Appearance: No Apparent Distress, Normal HEENT: Normal ENT Inspection, Pharynx Normal Neck: Full Range of Motion, Non-Tender, Normal, Normal Inspection Respiratory: Chest Non-Tender, Lungs Clear, No Accessory Muscle Use, No Respiratory Distress, Normal Breath Sounds Cardiovascular: No Edema, No Murmur, No Gallop, Normal Peripheral Pulses, Regular Rate/Rhythm Breast Exam: Deferred Gastrointestinal: No Organomegaly, Non Tender, No Pulsatile Mass, Normal Bowel Sounds, Soft Genitalia: Deferred Pelvic: Deferred Rectal: Deferred Extremities: No calf tenderness, Normal capillary refill, Normal inspection, Normal range of motion, Non-tender, No pedal edema Musculoskeletal : Apperance: Normal Neurologic: Disoriented, Other (A&OX0, FOLLOWING COMMANDS) Cerebellar Function: Normal Reflexes: Normal Skin: Dry, Normal Color, Warm Lymphatic: No Adenopathy Was a procedure done? Was a procedure done?: No Differential Diagnosis (SZ) Seizure: Epilepsy-Break Through, Epilepsy-Status General Weakness: N/A Headache: N/A X-Ray, Labs, Meds, VS Vital Signs Date Time Temp Pulse Resp B/P (MAP) Pulse Ox O2 Delivery O2 Flow Rate FiO2 08/16/24 12:57 61 16 98 Room Air* 0 21 08/16/24 12:55 96.4 61 16 133/67 (89) 98 96.4 08/16/24 11:21 98.0 72 20 147/80 (102) 99 98.0 08/16/24 11:12 69 Current Medications Medications (Trade) Dose Ordered Sig/Natividad Route Start Time Stop Time Status Last Admin Levetiracetam 100 ml @ 400 mls/hr ONCE ONCE IV 08/16/24 11:45 08/16/24 11:59 DC 08/16/24 11:54 Levetiracetam 100 ml @ 400 mls/hr ONCE ONCE IV 08/16/24 11:45 08/16/24 11:59 DC 08/16/24 11:54 Time of 1ST Reevaluation: 12:00 Reevaluation 1ST: Unchanged Patient Education/Counseling: Other (A&OX0) Family Education/Counseling: Diagnosis, Treatment Departure 1 Departure Time of Disposition: 17:47 (Patient likely had a breakthrough seizure she has now returned to baseline. We will discharge patient home with outpatient follow up) Impression: Primary Impression: Breakthrough seizure Disposition: 01 HOME / SELF CARE / HOMELESS Condition: Stable Additional Instructions: You had a breakthrough seizure today. It is important to take your seizure medication. You should stay well rested and well hydrated. You should follow up with your regular doctor within 1 week. If your symptoms worsen or you have any other concerns then please return to the emergency room. Discharged With: Relative (Sibling) Critical Care Note Critical Care Time?: No Stability Stability form required: No Heart Score Heart Score: Heart Score Response (Comments) Value History N/A 0 EKG N/A 0 Age N/A 0 Risk Factors N/A 0 Troponin N/A 0 Total 0 I personally scribed for TODD ZELAYA MD ([email or web address]) on 08/16/24 at 12:01. Electronically submitted by Arelis Dodson ([email or web address]). TODD ZELAYA MD Aug 16, 2024 12:01
[2024-08-16 12:57] VITALS: PULSE 61; RESP 16; O2SAT 98
[2024-08-16 19:30] VITALS: BP 91/50; PULSE 56; RESP 18; TEMP 98.3; O2SAT 97
== END 2024-08-16 21:50 | disposition home or self-care (01) ==
LOC: EDBD 11:10 → ER 11:10
DX: G40.909 Epilepsy, unspecified, not intractable, without status epilepticus (principal); F17.210 Nicotine dependence, cigarettes, uncomplicated; Z86.73 Personal history of transient ischemic attack (TIA), and cerebral infarction without residual deficits; Z90.710 Acquired absence of both cervix and uterus
CPT/HCPCS: 93005; 96374; 96375; 99284; J1953

== ENCOUNTER 2024-08-25 20:05 | Inpatient (IN) | payer BC, OTHER ==
[~2024-08-25] VITALS: Ht 167.6 cm; Wt 73.0 kg
[2024-08-25 20:20] VITALS: PULSE 56; RESP 12; O2SAT 99
--- NOTE | 2024-08-25 20:21 | ED.PDOC ---
HPI Comments HPI: 59y F who presents to the ED via EMS for chief complaint of SVT - EMS states pt was at home resting and states suddenly she stated to have shortness of breath and chest pain and called EMS - EMS arrived on scene and checked vitals with pt having noted heart rate of 160 and BP of 84/61 - EMS did EKG which showed pt. in SVT with rate of 160 and pt was given 6 mg adenosine and pt converted to normal sinus rhythm and pt stating her chest pain and shortness of breath was alleviated - pt was given IV fluids to due to the low BP and pt was given 4 mg Zofran en route to the ED after pt complaining of nausea, - pt now in the ED, has noted BP of 96/66 with fluids still running but pt otherwise denies any other symptoms - pt states she has recently seen PCP but states she has never seen boarding kennel or cattery operator in past - Patient follows and neurologist regarding her brain shunt Past Medical history: seizures, brain aneurysm Past Surgical history: Brain shunt Medications: Keppra, Ativan, oxybutynin Social History: Denies smoking, ETOH, and drug use. Allergies: sulfa HPI: Poor Historian. REVIEW OF SYSTEMS: CONSTITUTIONAL: Denies acute: fever, diaphoresis, chills, HEAD: Denies acute: headache, photophobia Eyes: Denies acute: Double vision, vision loss, eye pain, eye discharge. EARS: Denies acute: tinnitus, hearing loss, ear discharge, ear pain, THROAT: Denies acute: sore throat, swelling, difficulty swallowing , pain with swallowing, change in voice. NECK: Denies acute: neck pain, neck swelling, stiff neck. HEART: Denies acute : LUNGS: Denies acute: wheezing, cough, hemoptysis ABDOMEN: Denies acute: abdominal pain, Nausea, Vomiting, diarrhea, melena , hematemesis, hematochezia SKIN: Denies acute: rash, redness, lesions, itchiness. EXTREMITIES: Denies acute: calf pain, numbness, tingling, weakness, denies pain in extremity. Denies acute: Low back pain. Neuro: Denies acute: focal neurological deficit, motor or sensory focal neurological deficit, tremors, seizure like activity, confusion, dizziness, change in mental status, loss of bowel or bladder function, cauda equina like symptoms. : Denies acute: dysuria, hematuria, flank pain, increase in urinary frequency. PSYCH: Denies acute: hallucination, suicidal ideation, homicidal ideation. FEMALE: Denies acute: abnormal vaginal bleeding, foul odor, unusual discharge. PHYSICAL EXAM: General: ----no----acute distress, awake and alert. Head: normocephalic, atraumatic. Neck: supple, trachea is midline, no swelling. Throat: Normal phonation. Eyes:, no erythema, no purulent discharge, no proptosis, no icterus. Heart: regular rate, regular rhythm, no significant murmur appreciated. Lungs: no apparent respiratory distress, Able to speak in full sentences. No wheezing, no rhonchi, no crackles. No stridors Clear to auscultation bilaterally. Abdomen: non tender to palpation, non distended, soft, no guarding, no rebound, + bowel sounds. Neuro: Awake, Alert, oriented to name, self, situation, follows commands GCS=15. Speech is normal. Skin: no petechia, no purpura, no cyanosis, non-pale, not jaundice. Lower extremities: --no - Pitting edema no deformity, no focal swelling, no calf TTP. Makes eye contact. moves all four extremities. Face: no apparent facial droop. No nuchal rigidity, Kernig's sign, Brudzinski's sign, no meningeal signs. ED COURSE: DISCLAIMER: This medical document was created using an electronic medical record system with voice recognition software and computerized dictation system. Although this document has been carefully reviewed, there might still be some phonetic and typographical errors. Occasional wrong-word or "sound-alike" substitutions may have occurred due to the inherent limitations of voice recognition software. These areas are purely typographical due to imperfections of the software programs and do not reflect any compromise in the patient's medical care. Please read the chart carefully and recognize, using context, where these substitutions have occurred. Time Seen by MD: 20:08 Primary Care Provider: UNKNOWN Reviewed Notes: Medications, Allergies Allergies: Coded Allergies: Sulfa Antibiotics (Verified Allergy, Unknown, 11/15/23) Home Meds Active Scripts Meclizine Hcl (Meclizine Hcl) 12.5 Mg Tab, 1 TAB PO TID PRN, #14 TAB As needed for dizziness/vertigo symptoms Prov:HALLE BANEGAS MD 11/17/23 Reported Medications Memantine Hydrochloride (NAMENDA XR) 14 Mg Cap, 14 MG OR DAILY, CAP 11/16/23 Bisoprolol & Hydrochlorothiazi (Bisoprolol Fumarate/Marana 10-6.25 mg) 1 Tab Tab, 1 TAB PO HS, TAB 11/16/23 Divalproex Sodium (Depakote) 500 Mg Tab, 500 MG PO HS, TAB 11/16/23 Information Source: Patient, Emergency Med Personnel Mode of Arrival: EMS Past Medical History PAST MEDICAL HISTORY: CVA, Seizures Surgical History: Hysterectomy LOAN SPECIALIST History: No Pertinent LOAN SPECIALIST History Family History Family History: Unknown Social History Smoker: Cigarettes Alcohol: Denies ETOH Use Drugs: Denies Drug Use Lives In: Home Was a procedure done? Was a procedure done?: No X-Ray, Labs, Meds, VS Vital Signs Date Time Temp Pulse Resp B/P (MAP) Pulse Ox O2 Delivery O2 Flow Rate FiO2 08/25/24 20:15 97.9 74 16 96/66 (76) 97 97.9 08/25/24 20:06 71 Lab Test 08/25/24 21:17 08/25/24 20:30 Range/Units Troponin I High Sensitivity 22 7 </=34 ng/L White Blood Count 5.6 4.4-10.8 10^3/uL Red Blood Count 4.63 4.0-5.20 10^6/uL Hemoglobin 14.3 12.2-16.2 g/dL Hematocrit 43.4 36.0-46.0 % Mean Corpuscular Volume 93.7 80.0-100.0 fL Mean Corpuscular Hemoglobin 30.8 28.0-32.0 pg Mean Corpuscular Hemoglobin Concent 32.9 32.0-36.0 g/dL Red Cell Distribution Width 14.3 11.8-14.3 % Platelet Count 262 140-450 10^3/uL Mean Platelet Volume 7.5 6.9-10.8 fL Neutrophils (%) (Auto) 61.9 37.0-80.0 % Lymphocytes (%) (Auto) 28.5 10.0-50.0 % Monocytes (%) (Auto) 7.4 0.0-12.0 % Eosinophils (%) (Auto) 1.5 0.0-7.0 % Basophils (%) (Auto) 0.7 0.0-2.0 % Neutrophils # (Auto) 3.5 1.6-8.6 10 ^3/uL Lymphocytes # (Auto) 1.6 0.4-5.4 10 ^3/uL Monocytes # (Auto) 0.4 0-1.3 10 ^3/uL Eosinophils # (Auto) 0.1 0-0.8 10 ^3/uL Basophils # (Auto) 0 0-0.2 10 ^3/uL Nucleated Red Blood Cells 0.1 % Sodium Level 143 136-145 mmol/L Potassium Level 3.3 L 3.5-5.1 mmol/L Chloride Level 115 H 98-107 mmol/L Carbon Dioxide Level 21 20-31 mmol/L Anion Gap 7 5-15 Blood Urea Nitrogen 14 9-23 mg/dL Creatinine 0.84 0.550-1.02 mg/dL Glomerular Filtration Rate Calc 80 >90 mL/min BUN/Creatinine Ratio 16.7 10.0-20.0 Serum Glucose 85 74-106 mg/dL Lactic Acid Level 1.3 0.4-2.0 mmol/L Calcium Level 9.8 8.7-10.4 mg/dL Magnesium Level 1.9 1.6-2.6 mg/dL Total Bilirubin 0.5 0.2-1.0 mg/dL Aspartate Amino Transferase (AST) 24 13-40 U/L Alanine Aminotransferase (ALT) 28 7-40 U/L Alkaline Phosphatase 64 46-116 U/L Total Protein 6.9 5.7-8.2 g/dL Albumin 4.4 3.2-4.8 g/dL [address] [address] Ph: [phone] DIAGNOSTIC IMAGING Diagnostic Imaging Report : [id number] Signed PATIENT: SHELLEY RANDOLPH ACCT: [id number] UNIT: [id number] : 1965 LOC: ER ROOM / BED: / AGE / SEX: 59 / F ADM STATUS: REG ER SERVICE 11 ORDERING PHYSICIAN: ONEAL FOURNIER DO PROCEDURE(s): CXRP - CHEST PORTABLE REASON: cp/sob SVT ORDER NUMBER(s): [id number], ACCESSION NUMBER(s): [id number] CHEST RADIOGRAPH Indication: cp/sob SVT Technique: Single frontal view of the chest was obtained Comparison: XY CHEST PORTABLE on DOS: 11/15/23 FINDINGS: Lines and Tubes: Catheter noted in the right cervical soft tissues and mediastinum. Postop changes in the cervical spine. Lungs: No focal consolidation. Pleura: No effusion. No pneumothorax. Cardiomediastinal contours: Unremarkable Bones: No acute osseous abnormality. IMPRESSION: 1. Catheter in place from the right cervical soft tissues 2. No prior studies for comparison ATED BY: ANGELA DELANEY Jr., DO DICTATED DATE/TIME: 08/25/242112 SIGNED BY: ANGELA DELANEY Jr., SIGNED DATE/TIME: 08/25/242112 CC: Time of 1ST Reevaluation: 21:58 (The case was discussed with the admitting team (HPI, physical exam, labs and diagnostic tests that were available at the time of disposition, ED course, treatment plan) on the phone. They agreed to admit the patient to their service and assume care of this patient from this point forward. Nurse practitioner Mee) Reevaluation 1ST: Improved Patient Education/Counseling: Diagnosis, Treatment Family Education/Counseling: No Family Present SEPSIS Sepsis Screen Physician Orders Electrocardigram (08/25/24 20:09) Electrocardigram (08/25/24 23:09) Bowling Ball Mold Assembler (08/25/24 ) Urinalysis (08/25/24 20:12) Chest Portable (08/25/24 20:12) Troponin-I Hs (08/25/24 23:12) NS (08/25/24 22:00) Vital Signs Date Time Temp Pulse Resp B/P (MAP) Pulse Ox O2 Delivery O2 Flow Rate FiO2 08/25/24 20:15 97.9 74 16 96/66 (76) 97 97.9 08/25/24 20:06 71 Laboratory Tests Test 08/25/24 20:30 Lactic Acid Level 1.3 mmol/L (0.4-2.0) White Blood Count 5.6 10^3/uL (4.4-10.8) Departure 1 Departure Time of Disposition: 21:13 Impression: Primary Impression: SVT (supraventricular tachycardia) Additional Impressions: Chest pain Shortness of breath Hypotension Disposition: ADMITTED INPATIENT Admit to: Tele Condition: Guarded Discharged With: Self Critical Care Note Critical Care Time?: No Heart Score Heart Score: Heart Score Response (Comments) Value History Slightly Suspicious 0 EKG Normal 0 Age 45-64 1 Risk Factors No known risk factors 0 Total 1 I personally scribed for ONEAL FOURNIER DO ([email or web address]) on 08/25/24 at 20:21. Electronically submitted by Terrance Heath ([employer]). I personally scribed for ONEAL FOURNIER DO ([email or web address]) on 08/25/24 at 21:38. Electronically submitted by Terrance Heath ([employer]). I personally scribed for ONEAL FOURNIER DO ([email or web address]) on 08/25/24 at 21:40. Electronically submitted by Terrance Heath ([facility] ONEAL FOURNIER DO Aug 25, 2024 20:21
[2024-08-25 20:49] LABS: Hematocrit 43.4 % (36.0-46.0); Hemoglobin 14.3 g/dL (12.2-16.2); Mean Corpuscular Hemoglobin 30.8 pg (28.0-32.0); Mean Corpuscular Volume 93.7 fL (80.0-100.0); Nucleated Red Blood Cells % 0.1 %
[2024-08-25 20:57] LABS: Alanine Aminotransferase 28 U/L (7-40); Albumin 4.4 g/dL (3.2-4.8); Alkaline Phosphatase 64 U/L (46-116); Anion Gap 7 (5-15); BUN/Creatinine Ratio 16.7 (10.0-20.0); Blood Urea Nitrogen 14 mg/dL (9-23); Calcium 9.8 mg/dL (8.7-10.4); Carbon Dioxide 21 mmol/L (20-31); Glucose 85 mg/dL (74-106); Magnesium 1.9 mg/dL (1.6-2.6); Sodium 143 mmol/L (136-145); Total Protein 6.9 g/dL (5.7-8.2)
[2024-08-25 20:58] LABS: Bilirubin, Total 0.5 mg/dL (0.2-1.0)
--- NOTE | 2024-08-25 21:16 | DVH ---
CHEST RADIOGRAPH Indication: cp/sob SVT Technique: Single frontal view of the chest was obtained Comparison: XY CHEST PORTABLE on DOS: 11/15/23 FINDINGS: Lines and Tubes: Catheter noted in the right cervical soft tissues and mediastinum. Postop changes in the cervical spine. Lungs: No focal consolidation. Pleura: No effusion. No pneumothorax. Cardiomediastinal contours: Unremarkable Bones: No acute osseous abnormality. IMPRESSION: 1. Catheter in place from the right cervical soft tissues 2. No prior studies for comparison
[2024-08-25 21:22] LABS: Chloride 115 mmol/L (98-107); Potassium 3.3 mmol/L (3.5-5.1)
[2024-08-25] MEDS ORDERED: ONDANSETRON HCL 4 MG/2 ML VIAL IV PRN (22:15)
[2024-08-25] MEDS ORDERED: HYDROcodone-ACET 5/325MG TAB PO PRN (22:15)
[2024-08-25] MEDS ORDERED: MORPHINE SULFATE INJ 2 MG/ml SYRG IV PRN (22:15)
[2024-08-25] MEDS: SODIUM CHLORIDE 0.9% 1,000 ML IV ONE (22:25)
[2024-08-25] MEDS: POTASSIUM CHL 20 Meq TABLET PO ONE (22:25)
[2024-08-25 23:09] LABS: Amphetamine Screen, Urine Neg (NEGATIVE); Barbiturate Scree,Urine Neg (NEGATIVE); Benzodiazephine Screen, Urine Neg (NEGATIVE); Cannabinoid Screen, Urine Neg (NEGATIVE); Cocaine Screen, Urine Neg (NEGATIVE); Opiate Scree,Urine Neg (NEGATIVE); Phencyclidine Screen, Urine Neg (NEGATIVE)
--- NOTE | 2024-08-25 23:17 | ECG ---
[facility] Test Date: 2024-08-25 Test Time: 20:06:25 Pat Name: SHELLEY RANDOLPH Department: ED Room: [address] [place] [address] Gender: F Technical Support Manager: ADAN : 1965 Requested By: ONEAL FOURNIER Order Number: [id number] Reading MD: Measurements Intervals [place] Rate: 71 P: 96 NV: 177 QRS: 5 QRSD: 108 T: 23 QT: 428 QTc: 466 Interpretive Statements Sinus rhythm Borderline low voltage, extremity leads Please click the below link to view image of tracing.
[2024-08-25 23:32] LABS: Urine Protein, UAD Negative (Negative)
[2024-08-25 23:45] VITALS: PULSE 62
[2024-08-26] VITALS (12 sets, daily range): BP systolic 101–140; BP diastolic 33–69; PULSE 43–63; RESP 17–18; TEMP 97.7–98.1; O2SAT 94–99
--- NOTE | 2024-08-26 00:58 | DVHHP2 ---
Admitting Diagnosis: Chest pain r/o ACS, Palpitations History of Present Illness History Source: Patient Exam Limitations: No limitations HPI Mrs. Monet Sutherland is a 59 yo female with known history of CVA, Seizures, Brain aneurysm, AV Shunt 2008, Hysterectomy who presents with a chief complaint of sudden onset of chest pain with associated shortness of breath and palpitations. Patient denies any cardiac history. Patient denies chest pain, palpitations, dyspnea, headaches, dizziness, blurry vision. Patient admitted for further evaluation. Home Meds Active Scripts Meclizine Hcl (Meclizine Hcl) 12.5 Mg Tab, 1 TAB PO TID PRN, #14 TAB As needed for dizziness/vertigo symptoms Prov:HALLE BANEGAS MD 11/17/23 Reported Medications Zonisamide (Zonisamide) 100 Mg Cap, 100 MG PO DAILY, CAP 08/26/24 Levetiracetam (KEPPRA TABLET) 500 Mg Tb, 750 MG PO BID, TAB 08/26/24 Lorazepam (ATIVAN TABLET) 0.5 Mg Tb, 0.5 MG PO, TAB 08/26/24 Discontinued Reported Medications Memantine Hydrochloride (NAMENDA XR) 14 Mg Cap, 14 MG OR DAILY, CAP 11/16/23 Bisoprolol & Hydrochlorothiazi (Bisoprolol Fumarate/Unity 10-6.25 mg) 1 Tab Tab, 1 TAB PO HS, TAB 11/16/23 Divalproex Sodium (Depakote) 500 Mg Tab, 500 MG PO HS, TAB 11/16/23 Past Medical History Cardiac: No pertinent Hx Pulmonary: No pertinent Hx Central Nervous System: CVA, Seizure, Other (Brain Aneurysm with AV Shunt) GI: No pertinent Hx Hemotology/Oncology: No pertinent Hx Hepatobiliary: No pertinent Hx Psychiatric: No pertinent Hx Musculoskeletal: No pertinent Hx Rheumotologic: No pertinent Hx Infectious Disease: No peritnent Hx ENT: No pertinent Hx Renal/: No pertinent Hx Endocrine: No pertinent Hx Dermatology: No pertinent Hx Past Surgical History: Hysterctomy Patient Family History: Patient reports no known family medical history. Smoker: No Hx (Negative) Alocohol: None Drugs: None Domestic Violence: Neg Review of Systems Constitutional: No symptom reported Ears, Nose, & Throat: No symptom reported Eyes: No symptom reported Pulmonary/Respiratory: No symptom reported Cardiovascular: No symptom reported Gastrointestinal: No symptom reported Genitourinary: No symptom reported Musculoskeletal: No symptom reported Skin: No symptom reported Psychiatric: No symptom reported Endocrine: No symptom reported Hemotologic/Lymphatic: No symptom reported H&P Exam Vital Signs Vital Signs Date Time Temp Pulse Resp B/P (MAP) Pulse Ox O2 Delivery O2 Flow Rate FiO2 08/26/24 00:24 97.8 63 18 101/69 (80) 94 97.8 08/25/24 20:20 Room Air* 0 21 General Appeara: Well developed, Well nourished, Normal Appearance Head Exam: Normal inspection Neck Exam: Normal inspection, Non-tender, Normal alignment Eye Exam: bilateral eye Normal inspection, bilateral eye PERRL, bilateral eye EOMI Ear Exam: bilateral ear Auricle normal Nasal Exam: Normal inspection Mouth: Normal Inspection Pulmonary/Respiratory: Normal inspection, Normal breath sounds, Chest non- tender, Lungs clear Cardiovascular/Chest: Normal inspection, Regular rate, Normal Rhythm Peripheral Pulses: 2+ dorsalis pedis (R), 2+ dorsalis pedis (L), 2+ Radial (R), 2+ Radial (L) Abdominal Exam: Normal bowel sounds, Soft Rectal Exam: Deferred ENDOSCOPY SPECIALTY TECHNICIAN Exam: Normal hearing, Normal speech, PERRL Neuro/Mental St: Alert, Oriented Appearance: Appropriate appearance, Appropriate insight Eye contact/ Speech: Cooperative, Good eye contact, Normal speech Thoughts/Psych: Normal thought pattern Skin Exam: Normal inspection, Normal color, Warm/dry SEPSIS Sepsis Screen Date sepsis recognized/suspect: Aug 25, 2024 Time Sepsis recognized/suspect: 2019 Recent Procedure: No On Antibiotic Therapy: No Respiratory Rate >20: No Heart Rate >90: No Temp<36 C (96.8 F) or >38.3 C: No SBP <90 or MAP <65 mmHG: No New Acute Mental Status Change: No Is the patient on CPAP, BIPAP,: No Physician Orders Electrocardigram (08/25/24 23:09) Family Support Worker (08/25/24 ) Chest Portable (08/25/24 20:12) * Cardiology Consult (08/25/24 22:02) Echo 2d Mode Cardiac Dop (08/25/24 22:02) Troponin-I Hs (08/26/24 06:00) Troponin-I Hs (08/26/24 14:00) Troponin-I Hs (08/26/24 22:00) Cardiac Diet-2gna,Lofat,Lochol (08/26/24 Breakfast) Basic Metabolic Panel (08/26/24 05:00) Basic Metabolic Panel (08/27/24 05:00) Magnesium (08/26/24 04:00) Communication Order (08/25/24 22:02) Admit (08/25/24 22:02) Nitroglycerin Sublingual (Ntrostat Subli (08/25/24 22:15) Morphine Sulfate Injection (08/25/24 22:15) Stat Ekg For Chest Pain (08/25/24 22:02) Notify Md Of Changes From Base (08/25/24 22:02) Ergonomics Engineer For 24 Hours (08/25/24 22:02) Emergency Dysrhythmia Protocol (08/25/24 22:02) Rhythm Strips Once Every Shift (08/25/24 22:02) Oxygen By Nasal Cannula (08/25/24 22:02) Ondansetron Hcl (Zofran) (08/25/24 22:15) Aspirin Tablet (08/26/24 10:00) Hydrocodone-Acet 5/325mg Tab (Williams 5/32 (08/25/24 22:15) Famotidine Tablet (Pepcid Tablet) (08/26/24 10:00) Acetaminophen Tablet (Tylenol Tablet) (08/25/24 22:15) Full Code (08/25/24 22:02) Ceftriaxone Ivpb Rocephin (08/26/24 09:00) Vital Signs Date Time Temp Pulse Resp B/P (MAP) Pulse Ox O2 Delivery O2 Flow Rate FiO2 08/26/24 00:24 97.8 63 18 101/69 (80) 94 97.8 08/25/24 23:09 64 16 108/51 (70) 99 08/25/24 20:20 97.8 56 12 92/43 (59) 99 97.8 08/25/24 20:20 56 12 99 Room Air* 0 21 08/25/24 20:15 97.9 74 16 96/66 (76) 97 97.9 08/25/24 20:06 71 Laboratory Tests Test 08/25/24 20:30 Lactic Acid Level 1.3 mmol/L (0.4-2.0) White Blood Count 5.6 10^3/uL (4.4-10.8) Medications Medications Dose Ordered Sig/Natividad Route Start Time Stop Time Status Last Admin Dose Admin Potassium Chloride 40 meq ONCE ONCE PO 08/25/24 22:15 08/25/24 22:16 DC 08/25/24 22:25 40 MEQ Sodium Chloride 1,000 ml @ 1,000 mls/hr Q1H ONCE IV 08/25/24 22:00 08/25/24 22:59 DC 08/25/24 22:25 1,000 MLS/HR Labs/Xrays Labs Test 08/25/24 23:15 08/25/24 22:42 08/25/24 20:30 Range/Units Troponin I High Sensitivity 65 *H </=34 ng/L Urine Color Light-yellow Yellow Urine Clarity Clear Clear Urine pH 6.5 5.0-9.0 Urine Specific [place] 1.010 1.001-1.035 Urine Protein Negative Negative Urine Ketones Negative Negative Urine Blood Negative Negative /uL Urine Nitrite Negative Negative Urine Bilirubin Negative Negative Urine Urobilinogen Normal Negative mg/dL Urine Leukocyte Esterase 2+ Negative /uL Urine RBC None seen 0 - 4 /hpf Urine Microscopic WBC 3 0-5 /HPF Urine Squamous Epithelial Cells Few <5 /hpf Urine Bacteria Few H None Seen /hpf Urine Glucose Normal Normal mg/dL Urine Opiates Screen Neg NEGATIVE Urine Fentanyl Screen Neg NEGATIVE Urine Barbiturates Screen Neg NEGATIVE Urine Phencyclidine Screen Neg NEGATIVE Urine Amphetamines Screen Neg NEGATIVE Urine Benzodiazepines Screen Neg NEGATIVE Urine Cocaine Screen Neg NEGATIVE Urine Cannabinoids Screen Neg NEGATIVE White Blood Count 5.6 4.4-10.8 10^3/uL Red Blood Count 4.63 4.0-5.20 10^6/uL Hemoglobin 14.3 12.2-16.2 g/dL Hematocrit 43.4 36.0-46.0 % Mean Corpuscular Volume 93.7 80.0-100.0 fL Mean Corpuscular Hemoglobin 30.8 28.0-32.0 pg Mean Corpuscular Hemoglobin Concent 32.9 32.0-36.0 g/dL Red Cell Distribution Width 14.3 11.8-14.3 % Platelet Count 262 140-450 10^3/uL Mean Platelet Volume 7.5 6.9-10.8 fL Neutrophils (%) (Auto) 61.9 37.0-80.0 % Lymphocytes (%) (Auto) 28.5 10.0-50.0 % Monocytes (%) (Auto) 7.4 0.0-12.0 % Eosinophils (%) (Auto) 1.5 0.0-7.0 % Basophils (%) (Auto) 0.7 0.0-2.0 % Neutrophils # (Auto) 3.5 1.6-8.6 10 ^3/uL Lymphocytes # (Auto) 1.6 0.4-5.4 10 ^3/uL Monocytes # (Auto) 0.4 0-1.3 10 ^3/uL Eosinophils # (Auto) 0.1 0-0.8 10 ^3/uL Basophils # (Auto) 0 0-0.2 10 ^3/uL Nucleated Red Blood Cells 0.1 % Sodium Level 143 136-145 mmol/L Potassium Level 3.3 L 3.5-5.1 mmol/L Chloride Level 115 H 98-107 mmol/L Carbon Dioxide Level 21 20-31 mmol/L Anion Gap 7 5-15 Blood Urea Nitrogen 14 9-23 mg/dL Creatinine 0.84 0.550-1.02 mg/dL Glomerular Filtration Rate Calc 80 >90 mL/min BUN/Creatinine Ratio 16.7 10.0-20.0 Serum Glucose 85 74-106 mg/dL Lactic Acid Level 1.3 0.4-2.0 mmol/L Calcium Level 9.8 8.7-10.4 mg/dL Phosphorus Level 3.3 2.4-5.1 mg/dL Magnesium Level 1.9 1.6-2.6 mg/dL Total Bilirubin 0.5 0.2-1.0 mg/dL Aspartate Amino Transferase (AST) 24 13-40 U/L Alanine Aminotransferase (ALT) 28 7-40 U/L Alkaline Phosphatase 64 46-116 U/L Total Protein 6.9 5.7-8.2 g/dL Albumin 4.4 3.2-4.8 g/dL Assessment/Plan Problem List: (1) Chest pain (2) Heart palpitations (3) Shortness of breath (4) Hypotension Plan This is a 59 yo female with known history of CVA, Seizures, Brain aneurysm, AV shunt, Hysterectomy who presents to the hospital with chest pain, palpitations, shortness of breath , patient found to have 1. Chest pain r/o ACS 2. Palpitations/SVT 3. acute Hypokalemia 4. Hx of Seizures 5. Hx of CVA Plan Admit Telemetry unit Cardiology consultation, 2D echo, serial troponin levels, ASA, Statin IV hydration NS Lipid Online Merchant electrolytes replenish as needed Continue home medications when reconciled Discussed all above with patient who verbalizes agreement and understanding of care plan. All questions were answered. Discussed with supervising MD. Plan discussed with: Patient, Other Code Visit Code Visit Total Time (mins): 45 Additional Comments Additional Comments Additional Comments 59-year-old female with a known history of seizure disorder, history of brain aneurysm status post AV shunt with a mild right-sided residual deficit presented to the hospital with a chest pain palpitation found to have 1. SVT status post adenosine currently in sinus bradycardia 2. Sinus bradycardia suspect secondary to AV hany blocking agents, hold bisoprolol 3. Epilepsy 4. Brain aneurysm status post AV shunt with a residual right-sided weakness -2D echo cardiology consultation, hold beta jayden. CAM LEWIS Aug 26, 2024 00:58 GIULIANA FAY MD Aug 26, 2024 14:22
[2024-08-26] MEDS: ENOXAPARIN SOD 100 MG/1 ML SYRINGE SC ONE (01:55)
[2024-08-26] MEDS: SODIUM CHLORIDE 0.9% 1,000 ML IV SCH (01:55)
[2024-08-26] MEDS ORDERED: LORA-1121 PO (05:55)
[2024-08-26] MEDS ORDERED: KEP500T PO (05:55)
[2024-08-26] MEDS ORDERED: ZONI100C43 PO (05:55)
[2024-08-26 07:46] LABS: Potassium 4.2 mmol/L (3.5-5.1)
[2024-08-26 07:47] LABS: Anion Gap 9 (5-15); Calcium 10.2 mg/dL (8.7-10.4); Carbon Dioxide 22 mmol/L (20-31)
[2024-08-26 07:52] LABS: BUN/Creatinine Ratio 17.1 (10.0-20.0); Blood Urea Nitrogen 13 mg/dL (9-23); Glucose 83 mg/dL (74-106); Magnesium 1.8 mg/dL (1.6-2.6); Triglycerides 56 mg/dL (< 150)
[2024-08-26 07:54] LABS: Cholesterol 129 mg/dL (< 200); HDL Cholesterol 47 mg/dL (40-59)
[2024-08-26 07:57] LABS: Chloride 115 mmol/L (98-107); Sodium 146 mmol/L (136-145)
[2024-08-26] MEDS: cefTRIAXone 1GM/50ML D5W 50 ML IV SCH (09:18)
[2024-08-26] MEDS: levETIRAcetam 500 MG TAB PO SCH (09:18)
[2024-08-26] MEDS: FAMOTIDINE 20 MG TAB PO SCH (09:19)
[2024-08-26] MEDS ORDERED: OXYBUTYNIN CHL 5 MG TAB PO SCH (10:00)
--- NOTE | 2024-08-26 11:46 | ECG ---
[facility] Test Date: 2024-08-26 Test Time: 11:39:21 Pat Name: SHELLEY RANDOLPH Department: Room: [facility]3T B Gender: F Customer Assistance Representative: GAVIN : 1965 Requested By: LUIS GREER Order Number: [id number] Reading MD: Eric Ureña Measurements Intervals [place] Rate: 41 P: 78 CT: 143 QRS: 26 QRSD: 108 T: 44 QT: 520 QTc: 430 Interpretive Statements Sinus bradycardia Low voltage, extremity leads Baseline wander in lead(s) V6 Electronically Signed On 08-29-2024 21:33:08 PDT by Eric Ureña Please click the below link to view image of tracing.
[2024-08-26] MEDS: NITROGLYCERIN 0.4 MG SL TAB SL PRN (11:47)
[2024-08-26] MEDS: MAGNESIUM SULFATE 1GM/100ML 100 ML IV ONE (13:00)
--- NOTE | 2024-08-26 13:10 | DVHINCON2 ---
Date Seen: Aug 26, 2024 Referring Physician LILIAM Durant Reason for Consultation Chest pain and palpitations History of Present Illness This is a 59-year-old female who presented to the emergency room via EMS with a chief complaint of palpitations. The patient reports she was resting at home at the onset of symptoms describing a sudden onset of palpitations associated with shortness of breath and dizziness prompting her to call 911. Upon EMS arrival the patient was found in an a supraventricular tachycardia rhythm for which she was medicated with the adenosine 6 mg IV x1, NS 500 mL IV x1, and Zofran 4 mg IV x1 (there was no copy of SVT rhythm strip/ECG in chart). Upon arrival to the emergency room the patient underwent a 12 lead electrocardiogram revealing a normal sinus rhythm. During admission the patient has been noted to be bradycardic with a heart rate as low as 38 bpm. She denies any dizziness, SOB, visual disturbances, or FARLEY. She had a one episode of chest pain described as substernal, sharp, non-provoked, non-radiating for which she underwent a twelve- lead electrocardiogram revealing a sinus bradycardia rhythm at 41 bpm with no evidence of sinus pauses or atrioventricular blocks. At that time, she was medicated with NTG SL with relief of chest pain. Of note, she was prescribed bi soprolol 10 mg on 11/16/2023. Significant medical history includes seizure activity and brain aneurysm status post AV shunt (2007) with residual right- sided weakness. Past Medical History Past medical history reviewed. No other significant than mentioned above. Past Surgical History Brain aneurysm with AV shunt, 2008 Hysterectomy Family History: Patient reports no known family medical history. Family History Family history reviewed. Social History Denies the use of illicit drugs, alcohol, or tobacco use. Allergies: Coded Allergies: Sulfa Antibiotics (Verified Allergy, Unknown, 11/15/23) Home Meds Active Scripts Meclizine Hcl (Meclizine Hcl) 12.5 Mg Tab, 1 TAB PO TID PRN, #14 TAB As needed for dizziness/vertigo symptoms Prov:HALLE BANEGAS MD 11/17/23 Reported Medications Zonisamide (Zonisamide) 100 Mg Cap, 100 MG PO DAILY, CAP 08/26/24 Levetiracetam (KEPPRA TABLET) 500 Mg Tb, 750 MG PO BID, TAB 08/26/24 Lorazepam (ATIVAN TABLET) 0.5 Mg Tb, 0.5 MG PO, TAB 08/26/24 Discontinued Reported Medications Memantine Hydrochloride (NAMENDA XR) 14 Mg Cap, 14 MG OR DAILY, CAP 11/16/23 Bisoprolol & Hydrochlorothiazi (Bisoprolol Fumarate/[place] 10-6.25 mg) 1 Tab Tab, 1 TAB PO HS, TAB 11/16/23 Divalproex Sodium (Depakote) 500 Mg Tab, 500 MG PO HS, TAB 11/16/23 Home Meds Home medications reviewed. Current Medications Current Medications Medications (Trade) Dose Ordered Sig/Natividad Route PRN Reason Start Time Stop Time Status Last Admin Nitroglycerin (Ntrostat Sublingual) 0.4 mg Q5MINP PRN SL FOR CHEST PAIN 08/25/24 22:15 08/26/24 11:47 Morphine Sulfate 2 mg Q30M PRN IV FOR CHEST PAIN 08/25/24 22:15 Ondansetron HCl (Zofran) 4 mg Q6HPRN PRN IV NAUSEA OR VOMITING 08/25/24 22:15 Aspirin 81 mg DAILY PO 08/26/24 10:00 08/26/24 09:19 Acetaminophen/ Hydrocodone Bitart ([place] 5/325MG Tab) 1 tab Q6HPRN PRN PO PAIN SCALE 1 THRU 6 08/25/24 22:15 Famotidine (Pepcid Tablet) 20 mg BID PO 08/26/24 10:00 08/26/24 09:19 Acetaminophen (Tylenol Tablet) 650 mg Q6HPRN PRN PO PAIN SCALE 1-3 OR TEMP>100.4 08/25/24 22:15 Ceftriaxone Sodium 50 ml @ 100 mls/hr DAILY@09 IV 08/26/24 09:00 08/26/24 09:18 Sodium Chloride 1,000 ml @ 75 mls/hr [id number] IV 08/26/24 01:00 08/26/24 01:55 Oxybutynin Chloride (Ditropan Tablet) 15 mg DAILY PO 08/26/24 10:00 Cancel Levetiracetam (Keppra Tablet) 1,500 mg BID PO 08/26/24 10:00 08/26/24 09:18 Patient Own Medication 1 DAILY PO 08/26/24 10:00 08/26/24 11:19 DC Patient Own Medication 1 DAILY PO 08/27/24 10:00 Patient Own Medication 1 DAILY PO 08/27/24 10:00 Review of Systems Constitutional: No symptom reported Ears, Nose, & Throat: No symptom reported Eyes: No symptom reported Neurological: No symptoms reported Pulmonary/Respiratory: SOB Cardiovascular: Chest pain, palpitations Gastrointestinal: No symptom reported Genitourinary: No symptom reported Musculoskeletal: No symptom reported Skin: No symptom reported Psychiatric: No symptom reported Endocrine: No symptom reported Hemotologic/Lymphatic: No symptom reported Vital Signs Vital Signs Date Time Temp Pulse Resp B/P (MAP) Pulse Ox O2 Delivery O2 Flow Rate FiO2 08/26/24 11:47 121/64 08/26/24 11:45 45 08/26/24 09:00 98.1 17 98 98.1 08/26/24 00:40 Room Air* 0 21 Physical Exam General Appearance: Cooperative. Well developed. Well nourished. In no acute distress Head Exam: Normal inspection Neck Exam: Normal inspection. Non-tender. Normal alignment Pulmonary/Respiratory: Chest non-tender. Clear bilateral breath sounds Cardiovascular/Chest: Regular rate and rhythm. S1, S2. Sinus bradycardia. No murmurs. No JVD. Peripheral Pulses: 2+ Radial (R). 2+ Radial (L). 2+ Pedal (R). 2+ Pedal (L) Abdominal Exam: Normal bowel sounds. Soft. Nontender. No hepatospenomegaly. No masses Ankle Exam: Negative ankle edema Lower extremities: Negative lower extremity edema Neuro/Mental Status: A&O x3. Coherent. Right-sided weakness present Thoughts/Psych: Normal thought pattern. Appropriate mood and affect. Good judgement and insight Appearance: In no acute distress Skin Exam: Normal inspection. Normal color. Warm. Dry Labs/Diagnostic Data Labs Test 08/26/24 05:21 08/25/24 22:42 08/25/24 20:30 Range/Units D-Dimer, Quantitative 0.24 0.0-0.49 mg/L FEU Sodium Level 146 H 136-145 mmol/L Potassium Level 4.2 3.5-5.1 mmol/L Chloride Level 115 H 98-107 mmol/L Carbon Dioxide Level 22 20-31 mmol/L Anion Gap 9 5-15 Blood Urea Nitrogen 13 9-23 mg/dL Creatinine 0.76 0.550-1.02 mg/dL Glomerular Filtration Rate Calc 90 >90 mL/min BUN/Creatinine Ratio 17.1 10.0-20.0 Serum Glucose 83 74-106 mg/dL Calcium Level 10.2 8.7-10.4 mg/dL Magnesium Level 1.8 1.6-2.6 mg/dL Troponin I High Sensitivity 83 *H </=34 ng/L Triglycerides Level 56 < 150 mg/dL Cholesterol Level 129 < 200 mg/dL LDL Cholesterol 73 < 100 mg/dL HDL Cholesterol 47 40-59 mg/dL Urine Color Light-yellow Yellow Urine Clarity Clear Clear Urine pH 6.5 5.0-9.0 Urine Specific [place] 1.010 1.001-1.035 Urine Protein Negative Negative Urine Ketones Negative Negative Urine Blood Negative Negative /uL Urine Nitrite Negative Negative Urine Bilirubin Negative Negative Urine Urobilinogen Normal Negative mg/dL Urine Leukocyte Esterase 2+ Negative /uL Urine RBC None seen 0 - 4 /hpf Urine Microscopic WBC 3 0-5 /HPF Urine Squamous Epithelial Cells Few <5 /hpf Urine Bacteria Few H None Seen /hpf Urine Glucose Normal Normal mg/dL Urine Opiates Screen Neg NEGATIVE Urine Fentanyl Screen Neg NEGATIVE Urine Barbiturates Screen Neg NEGATIVE Urine Phencyclidine Screen Neg NEGATIVE Urine Amphetamines Screen Neg NEGATIVE Urine Benzodiazepines Screen Neg NEGATIVE Urine Cocaine Screen Neg NEGATIVE Urine Cannabinoids Screen Neg NEGATIVE White Blood Count 5.6 4.4-10.8 10^3/uL Red Blood Count 4.63 4.0-5.20 10^6/uL Hemoglobin 14.3 12.2-16.2 g/dL Hematocrit 43.4 36.0-46.0 % Mean Corpuscular Volume 93.7 80.0-100.0 fL Mean Corpuscular Hemoglobin 30.8 28.0-32.0 pg Mean Corpuscular Hemoglobin Concent 32.9 32.0-36.0 g/dL Red Cell Distribution Width 14.3 11.8-14.3 % Platelet Count 262 140-450 10^3/uL Mean Platelet Volume 7.5 6.9-10.8 fL Neutrophils (%) (Auto) 61.9 37.0-80.0 % Lymphocytes (%) (Auto) 28.5 10.0-50.0 % Monocytes (%) (Auto) 7.4 0.0-12.0 % Eosinophils (%) (Auto) 1.5 0.0-7.0 % Basophils (%) (Auto) 0.7 0.0-2.0 % Neutrophils # (Auto) 3.5 1.6-8.6 10 ^3/uL Lymphocytes # (Auto) 1.6 0.4-5.4 10 ^3/uL Monocytes # (Auto) 0.4 0-1.3 10 ^3/uL Eosinophils # (Auto) 0.1 0-0.8 10 ^3/uL Basophils # (Auto) 0 0-0.2 10 ^3/uL Nucleated Red Blood Cells 0.1 % Lactic Acid Level 1.3 0.4-2.0 mmol/L Phosphorus Level 3.3 2.4-5.1 mg/dL Total Bilirubin 0.5 0.2-1.0 mg/dL Aspartate Amino Transferase (AST) 24 13-40 U/L Alanine Aminotransferase (ALT) 28 7-40 U/L Alkaline Phosphatase 64 46-116 U/L Total Protein 6.9 5.7-8.2 g/dL Albumin 4.4 3.2-4.8 g/dL Assessment Supraventricular tachycardia status post chemical cardioversion NSTEMI, likely type II secondary to above Sinus bradycardia (on Bisoprolol therapy) Hypokalemia Seizure activity Brain aneurysm s/p AV shunt with residual right-sided weakness Plan/Recommendation (Dr. Ureña) The patient experienced a supraventricular tachycardia rhythm status post successful chemical cardioversion on the field (there was no copy of SVT rhythm strip/ECG in chart) and presents with a sinus bradycardia rhythm with home medications including bisoprolol. Recommendations are to avoid AV hany blocking agents at this time given HR as low as 37 bpm, to obtain a transthoracic echocardiogram to evaluate cardiac function, and for an outpatient event monitor given newly diagnosed arrhythmia. Replete electrolytes as necessa ry, K>4 and Mg>2. Check TSH level. Monitor ECG changes and notify accordingly. In the setting of an unremarkable echocardiogram and no further cardiac arrhythmias during admission, there is no further cardiac work-up indicated at this time. Thank you for allowing us to participate in this patient's care. Please call if you have any questions or concerns. This medical document was created using an electronic medical record system with voice recognition software and computerized dictation system. Although this document has been carefully reviewed, there might still be some phonetic and typographical errors. Occasional wrong-word or ``sound-alike substitutions may have occurred due to the inherent limitations of voice recognition software. These areas are purely typographical due to imperfections of the software programs and do not reflect any compromise in the patient's medical care. Please read the chart carefully and recognize, using context, where these substitutions have occurred. Plan discussed with: Patient, Other NYHA Physical activity limitations: NA Date of Service: Aug 26, 2024 Billing Provider: LUIS GREER Cardiology Common Codes: [id number] INP/OBS CARE (High) LUIS GREER Aug 26, 2024 13:10
[2024-08-26] MEDS: ACETAMINOPHEN 325 MG TAB PO PRN (20:59)
[2024-08-27 01:00] VITALS: BP 137/59; PULSE 50; RESP 17; TEMP 98; O2SAT 96
--- NOTE | 2024-08-27 02:00 | DVHSR ---
APPROVED REPORT EXAM: Two-dimensional and M-mode echocardiogram with Doppler and color Doppler. Blood Pressure: 111/60 mmHg INDICATION Chest Pain Palpitations RISK FACTORS Height: 5'6, Weight: 157 DIMENSIONS LVDd3.5 (3.8-5.7cm)LA (2D)4.3 (1.9-4.0cm)Aortic Root2.7 (2.0-3.7cm) LVDs2.6 (2.5-4.0cm)LA (MM) (1.9-4.0cm)Aortic Cusp Exc1.8 (1.5-2.0cm) EF (%) 51.0 (55-70%)Rt. Atrium3.7 (1.9-4.0cm)Asc. Aorta cm IVSd0.9 (0.7-1.1cm)RV (D)3.0 (1.8-2.4cm) PWd1.1 (0.7-1.1cm) Mitral Valve MitralMitral Stenosis E wave0.76m/sMV Mean GR.mmHg A wave0.58m/sMV Peak GR.100mmHg E/A ratio1.32D MVAcm2 DECEL [id number] 1/2 Timems Aortic Valve Aortic ValveAortic Stenosis V10.77m/Sariah Mean GR.3mmHg V21.10m/Sariah Peak GR.5mmHg LVOT Diameter2.2 (1.8-2.4cm)Doppler AVA2.66cm2 Pulmonic Valve V20.87m/s Tricuspid Valve TR Velocity2.24m/s [id number] Conclusion LV EF IS 65% AND IS NORMAL NORMAL VALVES NORMAL RV FUNCTION NO EFFUSION
[2024-08-27 05:00] VITALS: BP 145/73; PULSE 56; RESP 18; TEMP 98.4; O2SAT 100
[2024-08-27 07:30] VITALS: PULSE 52; PULSE 65; RESP 20; O2SAT 95
[2024-08-27 07:34] LABS: Potassium 4.4 mmol/L (3.5-5.1); Sodium 145 mmol/L (136-145)
[2024-08-27 07:35] LABS: Anion Gap 9 (5-15); Carbon Dioxide 22 mmol/L (20-31)
[2024-08-27 07:40] LABS: BUN/Creatinine Ratio 18.6 (10.0-20.0); Blood Urea Nitrogen 13 mg/dL (9-23)
[2024-08-27 07:43] LABS: Calcium 10.5 mg/dL (8.7-10.4); Chloride 114 mmol/L (98-107); Glucose 63 mg/dL (74-106)
[2024-08-27 09:00] VITALS: BP 149/59; PULSE 65; RESP 20; TEMP 97.3; O2SAT 95
[2024-08-27] MEDS: ZONISAMIDE 100 MG CAPSULE PO SCH (09:41)
[2024-08-27 13:00] VITALS: BP 125/45; PULSE 45; RESP 18; TEMP 97.1; O2SAT 98
--- NOTE | 2024-08-27 13:41 | DVHDS2 ---
Discharge Summary Date of Admission Aug 25, 2024 at 22:02 Date of Discharge: Aug 27, 2024 Labs/Diagnostic Data: Laboratory Results Test 08/27/24 05:56 08/26/24 21:55 08/26/24 14:18 08/26/24 05:21 Sodium Level 145 mmol/L (136-145) Potassium Level 4.4 mmol/L (3.5-5.1) Chloride Level 114 mmol/L (98-107) Carbon Dioxide Level 22 mmol/L (20-31) Anion Gap 9 (5-15) Blood Urea Nitrogen 13 mg/dL (9-23) Creatinine 0.70 mg/dL (0.550-1.02) Glomerular Filtration Rate Calc 99 mL/min (>90) BUN/Creatinine Ratio 18.6 (10.0-20.0) Serum Glucose 63 mg/dL (74-106) Calcium Level 10.5 mg/dL (8.7-10.4) Troponin I High Sensitivity 78 ng/L (</=34) Thyroid Stimulating Hormone (TSH) 0.37 uIU/mL (0.55-4.78) D-Dimer, Quantitative 0.24 mg/L FEU (0.0-0.49) Magnesium Level 1.8 mg/dL (1.6-2.6) Triglycerides Level 56 mg/dL (< 150) Cholesterol Level 129 mg/dL (< 200) LDL Cholesterol 73 mg/dL (< 100) HDL Cholesterol 47 mg/dL (40-59) Test 08/25/24 22:42 08/25/24 20:30 Urine Color Light-yellow (Yellow) Urine Clarity Clear (Clear) Urine pH 6.5 (5.0-9.0) Urine Specific [place] 1.010 (1.001-1.035) Urine Protein Negative (Negative) Urine Ketones Negative (Negative) Urine Blood Negative /uL (Negative) Urine Nitrite Negative (Negative) Urine Bilirubin Negative (Negative) Urine Urobilinogen Normal mg/dL (Negative) Urine Leukocyte Esterase 2+ /uL (Negative) Urine RBC None seen /hpf (0 - 4) Urine Microscopic WBC 3 /HPF (0-5) Urine Squamous Epithelial Cells Few /hpf (<5) Urine Bacteria Few /hpf (None Seen) Urine Glucose Normal mg/dL (Normal) Urine Opiates Screen Neg (NEGATIVE) Urine Fentanyl Screen Neg (NEGATIVE) Urine Barbiturates Screen Neg (NEGATIVE) Urine Phencyclidine Screen Neg (NEGATIVE) Urine Amphetamines Screen Neg (NEGATIVE) Urine Benzodiazepines Screen Neg (NEGATIVE) Urine Cocaine Screen Neg (NEGATIVE) Urine Cannabinoids Screen Neg (NEGATIVE) White Blood Count 5.6 10^3/uL (4.4-10.8) Red Blood Count 4.63 10^6/uL (4.0-5.20) Hemoglobin 14.3 g/dL (12.2-16.2) Hematocrit 43.4 % (36.0-46.0) Mean Corpuscular Volume 93.7 fL (80.0-100.0) Mean Corpuscular Hemoglobin 30.8 pg (28.0-32.0) Mean Corpuscular Hemoglobin Concent 32.9 g/dL (32.0-36.0) Red Cell Distribution Width 14.3 % (11.8-14.3) Platelet Count 262 10^3/uL (140-450) Mean Platelet Volume 7.5 fL (6.9-10.8) Neutrophils (%) (Auto) 61.9 % (37.0-80.0) Lymphocytes (%) (Auto) 28.5 % (10.0-50.0) Monocytes (%) (Auto) 7.4 % (0.0-12.0) Eosinophils (%) (Auto) 1.5 % (0.0-7.0) Basophils (%) (Auto) 0.7 % (0.0-2.0) Neutrophils # (Auto) 3.5 10 ^3/uL (1.6-8.6) Lymphocytes # (Auto) 1.6 10 ^3/uL (0.4-5.4) Monocytes # (Auto) 0.4 10 ^3/uL (0-1.3) Eosinophils # (Auto) 0.1 10 ^3/uL (0-0.8) Basophils # (Auto) 0 10 ^3/uL (0-0.2) Nucleated Red Blood Cells 0.1 % Lactic Acid Level 1.3 mmol/L (0.4-2.0) Phosphorus Level 3.3 mg/dL (2.4-5.1) Total Bilirubin 0.5 mg/dL (0.2-1.0) Aspartate Amino Transferase (AST) 24 U/L (13-40) Alanine Aminotransferase (ALT) 28 U/L (7-40) Alkaline Phosphatase 64 U/L (46-116) Total Protein 6.9 g/dL (5.7-8.2) Albumin 4.4 g/dL (3.2-4.8) Other Laboratory Tests 08/27/24 05:56 08/25/24 20:30 Brief Hx & Hospital Course: 59-year-old female with a known history of seizure disorder, history of brain aneurysm status post AV shunt with a mild right-sided residual deficit presented to the hospital with a chest pain palpitation found to have supraventricular tachycardia which converted to normal sinus rhythm after adenosine therapy. Patient also has sinus bradycardia into 37 eventually bisoprolol which is patient's home medication has been held. Patient is currently cleared by Cardiology to be discharged. Patient's troponins were elevated which is trending down suspected secondary to demand ischemia because of SVT. Cardiology cleared the patient to be discharged. Patient was seen and evaluated by me at bedside in the presence of bedside RN Esther. Condition at Discharge: Stable Final Diagnosis/Problems List 59-year-old female with a known history of seizure disorder, history of brain aneurysm status post AV shunt with a mild right-sided residual deficit presented to the hospital with a chest pain palpitation found to have 1. SVT status post adenosine currently in sinus bradycardia 2. Sinus bradycardia suspect secondary to AV hany blocking agents, hold bisoprolol 3. Epilepsy 4. Brain aneurysm status post AV shunt with a residual right-sided weakness Discharge Disposition: Home with [facility] Services SNF Discharge Will this Physician continue t: No Discharge Instruct/Medications Diet: Cardiac 2g Na,low cholest Activity: See Comment Activity comment: No driving while on seizure medications. Follow Up/Referral: Follow up with the PCP and Cardiology in 1-2 weeks. Medications: Resume home medications , please do not take bisoprolol. Scheduled Levetiracetam (Keppra Tablet), 750 MG PO BID, (Reported) Zonisamide (Zonisamide), 100 MG PO DAILY, (Reported) Scheduled PRN Meclizine Hcl (Meclizine Hcl), 1 TAB PO TID PRN Miscellaneous Medications Lorazepam (Ativan Tablet), 0.5 MG PO, (Reported) Discontinued Medications Bisoprolol & Hydrochlorothiazi (Bisoprolol Fumarate/[place] 10-6.25 mg), 1 TAB PO HS, (Reported) Divalproex Sodium (Depakote), 500 MG PO HS, (Reported) Memantine Hydrochloride (Namenda Xr), 14 MG OR DAILY, (Reported) Discharge Statement: "Patient was advised to return to the ER or call 911 if any headaches, dizziness, shortness of breath, chest pain, abdominal pain, bleeding, fevers, or worsening of medical condition. Patient was counseled about treatment plan, medications, possible side effects, patientverbalized understanding. All questions were answered to the best of my ability. This discharge took greater then 30 minutes in planning, reviewing documentation, counseling the patient, and discussing with other team members." ASSESSMENT ASSESSMENT Assessment 59-year-old female with a known history of seizure disorder, history of brain aneurysm status post AV shunt with a mild right-sided residual deficit presented to the hospital with a chest pain palpitation found to have 1. SVT status post adenosine currently in sinus bradycardia 2. Sinus bradycardia suspect secondary to AV hany blocking agents, hold bisoprolol 3. Epilepsy 4. Brain aneurysm status post AV shunt with a residual right-sided weakness Date of Service: Aug 27, 2024 Billing Provider: GIULIANA FAY MD Common Visit Codes: NOT BILLABLE GIULIANA FAY MD Aug 27, 2024 13:41
[2024-08-27 15:08] VITALS: BP 116/50
== END 2024-08-27 18:24 | disposition home health service (06) | DRG 282 ==
LOC: ER 20:05 → EDBD 20:05 → OVERFLOW 22:02 → TELE-WESTW 23:45
PROVIDERS: ADMIT Nurse Practitioner Family; ATTEND Nurse Practitioner Family
DX: I47.10 Supraventricular tachycardia, unspecified (principal); I21.A1 Myocardial infarction type 2; G40.909 Epilepsy, unspecified, not intractable, without status epilepticus; F17.210 Nicotine dependence, cigarettes, uncomplicated; E87.6 Hypokalemia; Z90.710 Acquired absence of both cervix and uterus; Z86.73 Personal history of transient ischemic attack (TIA), and cerebral infarction without residual deficits; Z79.899 Other long term (current) drug therapy
CPT/HCPCS: 36415; 71045; 80048; 80053; 80061; 80307; 81001; 83605; 83735; 84100; 84443; 84484; 85025; 85379; 87081; 93005; 93306; 96361; 96365; G0378

== ENCOUNTER 2024-12-08 11:35 | Emergency (ER) | payer BC, OTHER ==
[~2024-12-08] VITALS: Ht 167.6 cm; Wt 66.0 kg
[~2024-12-08 11:35] MED LIST changes: -BISO1TAB18 PO; -DIVA-91 PO; +KEP500T PO; +LORA-1121 PO; -MEMA14CA OR; +ZONI100C43 PO
[2024-12-08 12:15] VITALS: PULSE 55; RESP 16; O2SAT 97
--- NOTE | 2024-12-08 12:23 | ECG ---
[facility] Test Date: 2024-12-08 Test Time: 11:39:57 Pat Name: SHELLEY RANDOLPH Department: [facility] ED Room: Gender: F Hardware Developer: MESERET : [id number] Requested By: EMERGENCY EMERGENCY Order Number: [id number] Reading MD: Measurements Intervals [place] Rate: 53 P: 78 UT: 139 QRS: 31 QRSD: 85 T: 55 QT: 478 QTc: 449 Interpretive Statements Sinus rhythm Please click the below link to view image of tracing.
[2024-12-08] MEDS: levETIRAcetam 1000 mg/100ml 100 ML IV ONE (13:07)
--- NOTE | 2024-12-08 13:15 | DVH ---
CHEST RADIOGRAPH Indication: worsening seizures. Technique: Single frontal view of the chest was obtained Comparison: XY CHEST PORTABLE on DOS: 08/25/24, XY CHEST XRAY 1 VIEW on DOS: 04/14/24, XY CHEST PORTABLE on DOS: 04/13/24 FINDINGS: Lines and Tubes: None. Suggested partially visualized right-sided approach ventriculoperitoneal shun t catheter coursing through the right neck to the right upper abdomen. Lungs: No focal consolidation. Hyperinflation of the lungs. Pleura: No effusion. No pneumothorax. Cardiomediastinal contours: Unremarkable Bones: No acute osseous abnormality. Cervical fixation hardware is noted. IMPRESSION: No acute cardiopulmonary disease. Hyperinflation of the lungs.
--- NOTE | 2024-12-08 13:22 | DVH ---
CT HEAD WITHOUT CONTRAST Indication: worsening seizures EXAM DATE: 12/08/2024 12:50 PM COMPARISON: CT HEAD WITHOUT CONTRAST on DOS: 04/13/24, CT HEAD WITHOUT CONTRAST on DOS: 02/14/24, CT HEAD WITHOUT CONTRAST on DOS: 02/14/24, CT BRAIN on DOS: 02/02/24, CT BRAIN on DOS: 01/07/24 TECHNIQUE: CT of the head without intravenous contrast. RADIATION DOSE: CTDIvol: 54 mGy, DLP: 953 mGy*cm FINDINGS: There is a right parietal ventriculostomy catheter which courses through the posterior horn s of the bilateral lateral ventricles and terminates in the left parietal lobe There is no intracranial hemorrhage. There is no extra-axial fluid, mass, mass effect or midline shif t. The ventricles are midline and normal in size. Basilar cisterns are patent. Terry-white differentia tion is maintained. Embolization coils in the region of the left ICA terminus. The paranasal sinuses and mastoids are well-pneumatized. Imaged portion of the orbits are unremarkabl e. IMPRESSION: No intracranial hemorrhage or mass effect. Embolization coils in the region of the left ICA terminus. There is a right parietal ventriculostomy catheter which courses through the posterior horns of the b ilateral lateral ventricles and terminates in the left parietal lobe.
[2024-12-08 13:38] LABS: Hematocrit 41.8 % (36.0-46.0); Hemoglobin 14.3 g/dL (12.2-16.2); Mean Corpuscular Hemoglobin 31.3 pg (28.0-32.0); Mean Corpuscular Volume 91.4 fL (80.0-100.0); Nucleated Red Blood Cells % 0.1 %
[2024-12-08 13:46] LABS: Sodium 143 mmol/L (136-145)
[2024-12-08 13:47] LABS: Anion Gap 10 (5-15); Calcium 9.8 mg/dL (8.7-10.4); Carbon Dioxide 23 mmol/L (20-31)
[2024-12-08 13:51] LABS: Chloride 110 mmol/L (98-107); Potassium 3.2 mmol/L (3.5-5.1)
[2024-12-08 13:52] LABS: BUN/Creatinine Ratio 7.8 (10.0-20.0)
[2024-12-08] MEDS: SODIUM CHLORIDE 0.9% 1,000 ML IV ONE (13:52)
[2024-12-08 13:54] LABS: Blood Urea Nitrogen 5 mg/dL (9-23)
[2024-12-08 13:58] LABS: Glucose 83 mg/dL (74-106)
[2024-12-08] MEDS: ACETAMINOPHEN 325 MG TAB PO ONE ×2 (14:47→18:32)
[2024-12-08 15:57] LABS: Urine Protein, UAD Negative (Negative)
[2024-12-08 19:46] VITALS: BP 128/64; TEMP 98.2
[2024-12-08 19:47] VITALS: PULSE 48; RESP 13; O2SAT 97
--- NOTE | 2024-12-09 11:11 | ED.PDOC ---
HPI (NEURO) HPI Comments This is a 59 year old female PEEWEE presenting to the ED with chief complaint of seizure. EMS reports patient had visited this morning due to experiencing nausea, vomiting, and diarrhea for some time. EMS relays patient was witnessed to have had a seizure in the urgent care, so 911 was called for assistance. Patient states that she feels weak and ill at this time. Patient notes she has history of seizures and takes Keppra daily. Patient denies any abdominal pain, headache, head injury, SOB, dizziness, or fever. Chief Complaint: Seizure Time Seen by MD: 12:48 Primary Care Provider: UNKNOWN Reviewed Notes: Nurses Notes, Maintenance Supervisor Notes, Medications, Allergies Information Source: Patient, Emergency Med Personnel Mode of Arrival: EMS Severity: Moderate Timing: Hours Duration: Minutes Prehospital treatment: None Seizure Quality: Tonic-clonic Seizure Location: Generalized Onset: At rest Circumstances: Other (recent illness) Before: Normal During: LOC After: Normal Mentation History of: Seizure Disorder Associated Signs and Symptoms: Nausea, Vomiting, Diarrhea Past Medical History PAST MEDICAL HISTORY: CVA, Seizures Surgical History: Hysterectomy OPERATIONS ACCOUNTANT History: No Pertinent OPERATIONS ACCOUNTANT History Family History Family History: Unknown Social History Smoker: Cigarettes Alcohol: Denies ETOH Use Drugs: Denies Drug Use Lives In: Home Constitutional: denies: chills, diaphoresis, fatigue, fever, malaise, sweats, weakness, others EENTM: denies: blurred vision, double vision, ear bleeding, ear discharge, ear drainage, ear pain, ear ringing, eye pain, eye redness, hearing loss, mouth pain, mouth swelling, nasal discharge, nose bleeding, nose congestion, nose pain, photophobia, tearing, throat pain, throat swelling, voice changes, others Respiratory: denies: cough, hemoptysis, orthopnea, SOB at rest, shortness of breath, SOB with excertion, stridor, wheezing, others Cardiovascular: denies: chest pain, dizzy spells, diaphoresis, Dyspnea on exertion, edema, irregular heart beat, left arm pain, lightheadedness, palpitations, PND, syncope, others Gastrointestinal: reports: diarrhea, nausea, vomiting; denies: abdomen distended, abdominal pain, blood streaked bowels, constipated, dysphagia, difficulty swallowing, hematemesis, melena, poor appetite, poor fluid intake, rectal bleeding, rectal pain, others Genitourinary: denies: abnormal vagina bleeding, burning, dyspareunia, dysuria, flank pain, frequency, hematuria, incontinence, pain, , vagina discharge, urgency, others Neurological: reports: seizure; denies: dizziness, fainting, headache, left sided numbness, left sided weakness, numbness, paresthesia, pre-existing deficit, right sided numbness, right sided weakness, speech problems, tingling, tremors, weakness, others Musculoskeletal: denies: back pain, gout, joint pain, joint swelling, muscle pain, muscle stiffness, neck pain, others Integumetry: denies: bruises, change in color, change in hair/nails, dryness, laceration, lesions, lumps, rash, wounds, others Allergic/Immunocompromised: denies: Difficulty Healing, Frequent Infections, Hives, Itching, others Hematologic/Lymphatic: denies: anemia, blood clots, easy bleeding, easy bruising, swollen glands, others Endocrine: denies: excessive hunger, excessive sweating, excessive thirst, excessive urination, flushing, intolerance to cold, intolerance to heat, unexplained weight gain, unexplained weight loss, others Psychiatric: denies: anxiety, bipolar disorder, depression, hopeless, panic disorder, schizophrenia, sleepless, suicidal, others All Other Systems: Reviewed and Negative Physical Exam General Appearance: Mild Distress, Other (Ill-appearing) HEENT: Normal ENT Inspection, Pharynx Normal, TMs Normal Neck: Full Range of Motion, Non-Tender, Normal, Normal Inspection Respiratory: Chest Non-Tender, Lungs Clear, No Accessory Muscle Use, No Respiratory Distress, Normal Breath Sounds Cardiovascular: No Edema, No JVD, No Murmur, No Gallop, Normal Peripheral Pulses, Regular Rate/Rhythm Breast Exam: Deferred Gastrointestinal: No Organomegaly, Non Tender, No Pulsatile Mass, Normal Bowel Sounds, Soft Genitalia: Deferred Pelvic: Deferred Rectal: Deferred Extremities: No calf tenderness, Normal capillary refill, Normal inspection, Normal range of motion, Non-tender, No pedal edema Musculoskeletal : Apperance: Normal Neurologic: Alert, manager nursing II-XII nml as Tested, No Motor Deficits, Normal Affect, Normal Mood, No Sensory Deficits Cerebellar Function: Normal Reflexes: Normal Skin: Dry, Normal Color, Warm Lymphatic: No Adenopathy Was a procedure done? Was a procedure done?: No Differential Diagnosis (SZ) Seizure: Hyperventilation CVA: CVA General Weakness: Dehydration, Dysrhythmia, VBI Headache: Migraine, Closed Head Injury, Carbon Monoxide Toxicity X-Ray, Labs, Meds, VS Vital Signs Date Time Temp Pulse Resp B/P (MAP) Pulse Ox O2 Delivery O2 Flow Rate FiO2 12/08/24 16:00 77 14 110/42 (64) 97 12/08/24 14:00 54 16 126/52 (76) 96 12/08/24 12:15 55 16 97 Room Air* 0 21 12/08/24 12:15 55 16 133/46 (75) 97 12/08/24 12:03 98.0 58 20 136/68 100 98.0 12/08/24 11:39 53 Lab Test 12/08/24 15:30 12/08/24 14:17 12/08/24 13:25 Range/Units Urine Color Light-yellow Yellow Urine Clarity Clear Clear Urine pH 8.5 5.0-9.0 Urine Specific [place] 1.010 1.001-1.035 Urine Protein Negative Negative Urine Ketones Trace Negative Urine Blood Negative Negative /uL Urine Nitrite Negative Negative Urine Bilirubin Negative Negative Urine Urobilinogen Normal Negative mg/dL Urine Leukocyte Esterase Negative Negative /uL Urine RBC <1 0 - 4 /hpf Urine Microscopic WBC 1 0-5 /HPF Urine Squamous Epithelial Cells Few <5 /hpf Urine Bacteria None seen None Seen /hpf Urine Glucose Normal Normal mg/dL Troponin I High Sensitivity 4 4 </=34 ng/L White Blood Count 4.2 L 4.4-10.8 10^3/uL Red Blood Count 4.57 4.0-5.20 10^6/uL Hemoglobin 14.3 12.2-16.2 g/dL Hematocrit 41.8 36.0-46.0 % Mean Corpuscular Volume 91.4 80.0-100.0 fL Mean Corpuscular Hemoglobin 31.3 28.0-32.0 pg Mean Corpuscular Hemoglobin Concent 34.3 32.0-36.0 g/dL Red Cell Distribution Width 12.2 11.8-14.3 % Platelet Count 249 140-450 10^3/uL Mean Platelet Volume 7.9 6.9-10.8 fL Neutrophils (%) (Auto) 62.5 37.0-80.0 % Lymphocytes (%) (Auto) 27.7 10.0-50.0 % Monocytes (%) (Auto) 8.9 0.0-12.0 % Eosinophils (%) (Auto) 0.2 0.0-7.0 % Basophils (%) (Auto) 0.7 0.0-2.0 % Neutrophils # (Auto) 2.6 1.6-8.6 10 ^3/uL Lymphocytes # (Auto) 1.2 0.4-5.4 10 ^3/uL Monocytes # (Auto) 0.4 0-1.3 10 ^3/uL Eosinophils # (Auto) 0 0-0.8 10 ^3/uL Basophils # (Auto) 0 0-0.2 10 ^3/uL Nucleated Red Blood Cells 0.1 % Sodium Level 143 136-145 mmol/L Potassium Level 3.2 L 3.5-5.1 mmol/L Chloride Level 110 H 98-107 mmol/L Carbon Dioxide Level 23 20-31 mmol/L Anion Gap 10 5-15 Blood Urea Nitrogen 5 L 9-23 mg/dL Creatinine 0.64 0.550-1.02 mg/dL Glomerular Filtration Rate Calc 101 >90 mL/min BUN/Creatinine Ratio 7.8 L 10.0-20.0 Serum Glucose 83 74-106 mg/dL Calcium Level 9.8 8.7-10.4 mg/dL Current Medications Medications (Trade) Dose Ordered Sig/Natividad Route Start Time Stop Time Status Last Admin Sodium Chloride 1,000 ml @ 1,000 mls/hr Q1H ONCE IV 12/08/24 12:45 12/08/24 13:44 DC 12/08/24 13:52 Levetiracetam 100 ml @ 400 mls/hr ONCE ONCE IV 12/08/24 12:45 12/08/24 12:59 DC 12/08/24 13:07 Acetaminophen (Tylenol Tablet) 650 mg ONCE ONCE PO 12/08/24 14:30 12/08/24 14:31 DC 12/08/24 14:[address] [address] Ph: [phone] DIAGNOSTIC IMAGING Diagnostic Imaging Report : [id number] Signed PATIENT: SHELLEY RANDOLPH ACCT: [id number] UNIT: [id number] : 1965 LOC: ER ROOM / BED: / AGE / SEX: 59 / F ADM STATUS: REG ER SERVICE 1238 ORDERING PHYSICIAN: TODD ZELAYA MD PROCEDURE(s): HWOCT - HEAD WITHOUT CONTRAST REASON: worsening seizures ORDER NUMBER(s): [id number], ACCESSION NUMBER(s): [id number] CT HEAD WITHOUT CONTRAST Indication: worsening seizures EXAM DATE: 12/08/2024 12:50 PM COMPARISON: CT HEAD WITHOUT CONTRAST on DOS: 04/13/24, CT HEAD WITHOUT CONTRAST on DOS: 02/14/24, CT HEAD WITHOUT CONTRAST on DOS: 02/14/24, CT BRAIN on DOS: 02/02/24, CT BRAIN on DOS: 01/07/24 TECHNIQUE: CT of the head without intravenous contrast. RADIATION DOSE: CTDIvol: 54 mGy, DLP: 953 mGy*cm FINDINGS: There is a right parietal ventriculostomy catheter which courses through the posterior horns of the bilateral lateral ventricles and terminates in the left parietal lobe There is no intracranial hemorrhage. There is no extra-axial fluid, mass, mass effect or midline shift. The ventricles are midline and normal in size. Basilar cisterns are patent. Terry-white differentiation is maintained. Embolization coils in the region of the left ICA terminus. The paranasal sinuses and mastoids are well-pneumatized. Imaged portion of the orbits are unremarkable. IMPRESSION: No intracranial hemorrhage or mass effect. Embolization coils in the region of the left ICA terminus. There is a right parietal ventriculostomy catheter which courses through the posterior horns of the bilateral lateral ventricles and terminates in the left parietal lobe. ATED BY: MARZENA RODRIGUEZ MD DICTATED DATE/TIME: 12/08/241323 SIGNED BY: MARZENA RODRIGUEZ MD SIGNED DATE/TIME: 12/08/241323 CC: [place] [id number] Ph: [phone] DIAGNOSTIC IMAGING Diagnostic Imaging Report : [id number] Signed PATIENT: SHELLEY RANDOLPH ACCT: [id number] UNIT: [id number] : 1965 LOC: ER ROOM / BED: / AGE / SEX: 59 / F ADM STATUS: REG ER SERVICE 1238 ORDERING PHYSICIAN: TODD ZELAYA MD PROCEDURE(s): CXRP - CHEST PORTABLE REASON: worsening seizures. ORDER NUMBER(s): [id number], ACCESSION NUMBER(s): [id number] CHEST RADIOGRAPH Indication: worsening seizures. Technique: Single frontal view of the chest was obtained Comparison: XY CHEST PORTABLE on DOS: 08/25/24, XY CHEST XRAY 1 VIEW on DOS: 04/14/24, XY CHEST PORTABLE on DOS: 04/13/24 FINDINGS: Lines and Tubes: None. Suggested partially visualized right-sided approach ventriculoperitoneal shunt catheter coursing through the right neck to the right upper abdomen. Lungs: No focal consolidation. Hyperinflation of the lungs. Pleura: No effusion. No pneumothorax. Cardiomediastinal contours: Unremarkable Bones: No acute osseous abnormality. Cervical fixation hardware is noted. IMPRESSION: No acute cardiopulmonary disease. Hyperinflation of the lungs. ATED BY: BEATRIZ RASHID DO DICTATED DATE/TIME: 12/08/24 131 SIGNED BY: BEATRIZ RASHID DO SIGNED DATE/TIME: 12/08/24 131 CC: Time of 1ST Reevaluation: 13:47 Reevaluation 1ST: Unchanged Patient Education/Counseling: Diagnosis, Treatment Family Education/Counseling: No Family Present Departure 1 Departure Time of Disposition: 18:16 (Patient likely with a breakthrough seizure. She is feeling better. We will discharge patient home with outpatient follow up) Impression: Primary Impression: Breakthrough seizure Disposition: 01 HOME / SELF CARE / HOMELESS Condition: Stable Additional Instructions: You had a breakthrough seizure today. It is important to take your seizure medication. You should stay well rested and well hydrated. You should follow up with your regular doctor within 1 week. If your symptoms worsen or you have any other concerns then please return to the emergency room. Discharged With: Self Critical Care Note Critical Care Time?: No Stability Stability form required: No Heart Score Heart Score: Heart Score Response (Comments) Value History N/A 0 EKG N/A 0 Age N/A 0 Risk Factors N/A 0 Troponin N/A 0 Total 0 I personally scribed for TODD ZELAYA MD ([email or web address]) on 12/08/24 at 12:50. Electronically submitted by Chad Covarrubias ([email or web address]). I personally scribed for TODD ZELAYA MD ([email or web address]) on 12/08/24 at 17:26. Electronically submitted by Terrance Heath ([email or web address]). TODD ZELAYA MD Dec 08, 2024 12:50
== END 2024-12-08 20:04 | disposition home or self-care (01) ==
LOC: ER 11:35 → EDBD 11:35 → ER 20:04
DX: G40.909 Epilepsy, unspecified, not intractable, without status epilepticus (principal); F17.210 Nicotine dependence, cigarettes, uncomplicated; Z98.2 Presence of cerebrospinal fluid drainage device; Z90.710 Acquired absence of both cervix and uterus; Z86.73 Personal history of transient ischemic attack (TIA), and cerebral infarction without residual deficits
CPT/HCPCS: 36415; 70450; 71045; 80048; 81001; 82947; 84484; 85025; 93005; 96361; 96365; 99285; J1953; J7030